=== PATIENT | female | born 1955 | race Caucasian/White ===

== ENCOUNTER 2023-11-10 16:01 | Outpatient (AMB) | payer OTHER, SELFPAY ==
--- NOTE | 2023-11-10 16:08 | A.OFFPC_ITS ---
Vital Signs 11/10/23 16:10 Height 5 ft 3 in Weight 133 lb 6 oz BMI 23.6 BP 132/70 Blood Pressure Location Lt brachial Position Sitting Pulse 76 Pulse Source Pulse Oximeter Pulse Oximetry (%) 98 Oxygen Delivery Method Room Air Intake Visit Reasons: NPV/discuss medication Intake Note: Patient is a new patient here to establish care for Hypothyroid, Cholesterol, possible high glucose . Transferring care from Dr Yeison Puentes ([facility], [facility]). Medical records have not been requested and have not received. Material Reprocessing Associate Required: No Financial Health Counselor: Not Required per policy Accompanied by: Self / Same As Patient Allergies No Known Allergies Allergy (Verified 11/10/23 16:55) Medication List - Last Reconciled 11/10/23 by Antoni Torres MD levothyroxine 88 mcg PO DAILY tpouecqa-eti-uvucl-vit K-lycop 400-20-300 mcg (One-A-Day Men's Multivitamin) tabs PO rosuvastatin 20 mg PO DAILY Tobacco use date assessed: 11/10/23 Fall risk assessment: No Falls in past year Last assessed Fall Risk: 11/10/23 Dental Screening Dental Screen Date: 11/10/23 Did you have a dental visit in the last 12 months?: Yes Did you have a dental problem in the last 6 months where you did not have access to dental care?: No Was dental information given to patient?: Patient has dentist HPI NPV/discuss medication HPI Details Patient comes in today to establish care - is a new patient to the practice Her previous PCP was Dr Yeison Puentes at [facility] in [place], [place] but states that he recently dropped Medicare and she can unfortunately no longer continue to see him as a patient Patient states that she currently feels well and mainly needs her Rx refilled as she will be running out of her prescriptions in about a month or so She denies any headaches or dizziness Denies any fever or any recent cough/cold symptoms; states that her throat feels slightly sore, especially on the left side Relates that she almost always ends up with a strep throat around this time of the year and her previous PCP would always have to treat her with some Abx for this; would like to have a strep test done in the office and get this treated if she has it again Is wondering if there are any other tests that can be ordered to check her for chronic strep infection Denies any chest pains, no SOB No nausea/vomiting, no abdominal pain No change in bowel habits noted She is also requesting for an order for chest x-rays, which she states her previous PCP normally orders for her annually Would also like to request for a thyroid US (has not had one done in 2 to 3 years now) and also an order for her yearly mammogram and updated BMD [facility] Medical History (Updated 11/12/23 @ 16:09 by Antoni Torres MD) Acquired hypothyroidism Pure hypercholesterolemia Surgical History (Updated 11/10/23 @ 17:10 by Antoni Torres MD) Hx of hysterectomy History of cholecystectomy Social History Housing: House Alcohol intake: never Patient Tobacco Use Status: Never used Tobacco e-Cigarette/Vaping Use: Never Used Second Hand Smoke Exposure: No service: No Current occupational status: retired Cognitive needs: No Hearing needs: No Vision needs: Yes (reading glasses) Questionnaire PHQ-9 Over the last 2 weeks, how often have you been bothered by any of the following problems? 1. Little interest or pleasure in doing things: not at all 2. Feeling down, depressed, or hopeless: not at all 3. Trouble falling or staying asleep, or sleeping too much: not at all 4. Feeling tired or having little energy: not at all 5. Poor appetite or overeating: not at all 6. Feeling bad about yourself - or that you are a failure or have let yourself or your family down: not at all 7. Trouble concentrating on things, such as reading the newspaper or watching television: not at all 8. Moving or speaking so slowly that other people could have noticed. Or the opposite - being so fidgety or restless that you have been moving around a lot more than usual: not at all 9. Thoughts that you would be better off or of hurting yourself in some way: not at all Total score: 0 Depression Screening Interpretation: Negative Depression Screening Done: Yes 21648 - PHQ-9 Billing: Yes Source: Developed by Drs. Justin Mitchell, Monalisa Choi, Bryce Flores and colleagues, with an educational anais from [employer]. Thrive Questionnaire Date Thrive assessed: 11/10/23 I am a: Patient What is your living situation today?: I have a steady place to live Within the past 12 months, did the food you bought not last and you didn't have the money to get more?: Never true Within the past 12 months, did you worry whether your food would run out before you got money to buy more?: Never true Do you have trouble paying for medicines?: No Do you have trouble getting transportation to medical appointments?: No Do you have trouble paying your heating and electricity bill?: No Do you have trouble taking care of your child, family member or friend?: No Do you have trouble with day-to-day activities such as bathing, preparing meals, shopping, managing finances, etc.?: No Are you currently unemployed and looking for a job?: No Are you interested in more education?: No Currently or been in a relationship where the following occur: no concerns reported THRIVE Score: 0 AUDIT C Alcohol Use Questionnaire (AUDIT-C) 1. How often do you have a drink containing alcohol?: Never Total Score: 0 Score Reviewed/Action Taken: Yes CONNIE-7 AMB Questionnaire CONNIE-7 Date CONNIE - 7 assessed: 11/10/23 Feeling nervous, anxious, or on edge: 0 = Not at all Not being able to stop or control worryin = Not at all Worrying too much about different things: 0 = Not at all Trouble relaxin = Not at all Being so restless that it is hard to sit still: 0 = Not at all Becoming easily annoyed or irritable: 0 = Not at all Feeling afraid as if something awful might happen: 0 = Not at all Total CONNIE-7 score (0-4 normal; 5-9 mild; 10-14 moderate; 15-21 severe): 0 Source: Developed by Drs. Justin Mitchell, Monalisa Choi, Bryce Flores and colleagues, with an educational anais from [employer]. Review of Systems Const Denies chills, Denies fatigue, Denies fever(s) and Denies headache(s) ENT Denies dysphagia, Denies dizziness, Denies otalgia, Denies headache(s), Denies neck pain, Denies odynophagia and Reports sore throat (mild) Card Denies chest pain, Denies palpitations and Denies dyspnea Resp Denies cough and Denies dyspnea GI Denies abdominal pain, Denies constipation, Denies dysphagia, Denies heartburn, Denies diarrhea, Denies nausea, Denies odynophagia and Denies vomiting Denies difficulty voiding, Denies nocturia, Denies dysuria and Denies urinary urgency Musc Denies back pain and Denies neck pain Skin/Breast Denies rash Neuro Denies dizziness and Denies headache(s) Psych Denies anxiety and Denies depression Endo Denies fatigue and Denies palpitations Physical exam (Primary Care) Vital Signs: Last Vital Signs Pulse 76 11/10/23 16:10 BP 132/70 11/10/23 16:10 Pulse Ox 98 11/10/23 16:10 Oxygen Delivery Method Room Air 11/10/23 16:10 BMI result Body Mass Index 23.6 Tobacco/Smoking Status: Tobacco use Status Tobacco use date assessed 11/10/23 11/10/23 16:13 Patient Tobacco Use Status Never used Tobacco 11/10/23 16:13 e-Cigarette/Vaping Use Never Used 11/10/23 16:13 PHQ-9: PHQ-9 Score PHQ-9: Total score 0 11/12/23 16:06 Depression Screening Interpretation: Negative Thrive Assessment: Date of Thrive Assessment Date Thrive assessed 11/10/23 11/10/23 16:13 Currently or been in a relationship where the following occur: no concerns reported Const General: no acute distress and alert Orientation/consciousness: patient oriented x3 HENMT Ears: TM's normal bilaterally and EAC's normal Throat: Yes posterior oropharynx normal and Yes tonsils normal (no TP congestion) Neck Neck: Yes no lymphadenopathy and Yes supple Thyroid: Thyroid normal Resp Auscultation: clear to auscultation bilaterally, no rales and no wheezes Cardio Rate: regular rate Rhythm: regular rhythm Heart sounds: no murmurs GI Palpation (GI): Soft to palpation and nontender Auscultation: normal bowel sounds General: Yes no CVA tenderness Back/Spine/Pelvis Back: no CVA tenderness Thoracic/Lumbar Spine: No lumbar spinal tenderness Skin Rashes: no rashes Neuro General: patient oriented x3 Cognition (Neuro): normal cognition Gait exam (Neuro): Normal gait present Extrem General: Yes no clubbing, cyanosis or edema Results AMB Rapid Strep AMB Rapid Strep Negative Last Edit by Amira Sánchez on 11/10/23 17:09 Results Reviewed Results Reviewed: Laboratory Last Values Strep Scn Rapid Clinic Negative 11/10/23 17:07 Assessment and Plan Assessment & Plan (1) Pure hypercholesterolemia: Code(s): E78.00 - Pure hypercholesterolemia, unspecified Plan: Reinforced low cholesterol diet Continue Rosuvastatin 20 mg QD - Rx refilled Will send patient to get her labs and fasting lipids done URI for follow up (2) Acquired hypothyroidism: Code(s): E03.9 - Hypothyroidism, unspecified Plan: Continue Levothyroxine 88 mcg QD Will send patient for repeat TFTs URI Per request, will also send her for a repeat thyroid US for follow up (reportedly had thyroid US last done a few years ago) (3) Sore throat: Code(s): J02.9 - Acute pharyngitis, unspecified Plan: She is reassured that her strep test done in the office today came out negative Advised that there is no point in doing any other confirmatory tests at this time and she does not have symptoms to indicate that she has a chronic strep infection Plan To return in 6 months for her annual physical examination Per request, will also order her annual mammogram and update her BMD screening, both of which will be due sometime in January 2024 Orders: Orders Comprehensive [place]. Panel Fast 11/10/23 E78.00 - Pure hypercholesterolemia, unspecified Lipid Panel 11/10/23 E78.00 - Pure hypercholesterolemia, unspecified UA CC w/rflx Micro + Cult 11/10/23 R30.0 - Dysuria XR DEXA axial skeleton 01/17/24 Z78.0 - Asymptomatic menopausal state AMB Rapid Strep Screen 11/10/23 Z13.9 - Encounter for screening, unspecified Complete Blood Count Auto Diff 11/10/23 D64.9 - Anemia, unspecified Thyroid Stimulating Hormone 11/10/23 E03.9 - Hypothyroidism, unspecified Free T4 (Free Thyroxine) 11/10/23 E03.9 - Hypothyroidism, unspecified Vitamin D 25-OH Total 11/10/23 E55.9 - Vitamin D deficiency, unspecified US thyroid 11/10/23 E04.1 - Nontoxic single thyroid nodule XR chest 2V 11/10/23 J98.8 - Other specified respiratory disorders MM tomosynthesis screening BI 01/17/24 Z12.31 - Encounter for screening mammogram for malignant neoplasm of breast Medications: New levothyroxine 88 mcg PO DAILY 90 days 90 tabs 3RF rosuvastatin 20 mg PO DAILY 90 days 90 tabs 3RF Coding Level of Care Code New Pt Level 4 (15062) Diagnoses Pure hypercholesterolemia E78.00 Acquired hypothyroidism E03.9 Sore throat J02.9
[2023-11-10 16:10] VITALS: BP 132/70; PULSE 76; O2SAT 98; BMI 23.6
== END 2023-11-10 17:08 | disposition home or self-care (01) ==
PROVIDERS: PCP Internal Medicine; Visit Provider Internal Medicine
DX: E78.00 Pure hypercholesterolemia, unspecified (principal); E03.9 Hypothyroidism, unspecified; J02.9 Acute pharyngitis, unspecified
CPT/HCPCS: 87880; 99204

== ENCOUNTER 2023-11-17 14:52 | Outpatient (REF) | payer MEDICARE, SELFPAY ==
--- NOTE | ~2023-11-17 | US_ITS ---
EXAMINATION: US THYROID CLINICAL INFORMATION: Nontoxic single thyroid nodule. COMPARISON: None available. TECHNIQUE: Linear transducer grayscale and color Doppler examination with attention to the region of the thyroid. FINDINGS: SIZE: Measurements of the thyroid lobes and nodules are given in sagittal, anteroposterior and transverse dimensions respectively. Right Thyroid Lobe: 4.5 x 2.0 x 0.9 cm, volume 4.2 mL. Parenchyma: The gland echotexture is homogeneous. Thyroid vascularity is normal. Left Thyroid Lobe: 3.9 x 1.2 x 1.2 cm, volume 2.9 mL. Parenchyma: The gland echotexture is homogeneous. Thyroid vascularity is normal. Isthmus: 0.2 cm in maximum AP dimension. No suspicious thyroid nodules are identified. A few tiny subcentimeter nodules are present, particularly in the right upper thyroid lobe. NODES: No lymphadenopathy is seen in the tissue surrounding the thyroid gland. US/US thyroid IMPRESSION: No suspicious thyroid nodules are identified. A few tiny subcentimeter nodules are present, particularly in the right upper thyroid lobe. ACR TI-RADS RECOMMENDATION REFERENCE: Ultrasound-guided fine-needle aspiration, followup ultrasound, no further follow up. * TR1 (0 point) and TR2 (2 points): No FNA or follow up. * TR3 (3 points): FNA if more than or equal to 2.5 cm in maximum dimension, followup ultrasound in 1, 3 and 5 years if 1.5 to 2.4 cm in maximum dimension. * TR4 (4-6 points): FNA if more than or equal to 1.5 cm in maximum dimension, followup ultrasound in 1, 2, 3 and 5 years if 1 to 1.4 cm in maximum dimension. * TR5 (more than or equal to 7 points): FNA if more than or equal to 1 cm in maximum dimension, followup ultrasound every year for 5 years if 0.5 to 0.9 cm in maximum dimension. * TR3, TR4 or TR5 nodules that are below the size threshold for followup receive no follow up.
--- NOTE | ~2023-11-17 | XR_ITS ---
EXAMINATION: XR CHEST CLINICAL INFORMATION: Respiratory disorder COMPARISON: None available. TECHNIQUE: 2 views of the chest were obtained. FINDINGS: The cardiac and mediastinal contours are normal. The lungs are well inflated questionable for COPD. The lungs are clear. No pleural effusion or pneumothorax. Thoracolumbar scoliosis and degenerative changes of the spine. XR/XR chest 2V IMPRESSION: No evidence for acute disease in the chest. Well-inflated lungs.
== END 2023-11-17 14:53 | disposition home or self-care (01) ==
LOC: HO.HMGCX 14:52
PROVIDERS: PCP Internal Medicine; Visit Provider Internal Medicine
DX: E04.1 Nontoxic single thyroid nodule (principal); J98.8 Other specified respiratory disorders
CPT/HCPCS: 71046; 76536

== ENCOUNTER 2023-12-05 07:16 | Outpatient (REF) | payer MEDICARE, SELFPAY ==
[2023-12-05 12:46] LABS: MANUAL DIFF FLAG NO
[2023-12-05 12:49] LABS: Basophils Absolute Auto 0.1 X10*3/uL (0.0-0.2); Basophils Percent Auto 1.4 % (0-2); Eosinophils Absolute Auto 0.2 X10*3/uL (0.0-0.4); Eosinophils Percent Auto 3.5 % (0-4); Hematocrit 40.5 % (37.0-47.0); Hemoglobin 13.4 g/dl (12.0-16.0); Imm Gran Abs Auto 0.01 X10*3/uL (0.00-0.03); Imm Gran Pct Auto 0.2 % (0.0-0.4); Lymphocytes Absolute Auto 1.6 X10*3/uL (1.2-4.9); Lymphocytes Percent Auto 35.7 % (20-40); Mean Corpuscular HGB Conc 33.1 g/dl (31.0-35.0); Mean Corpuscular Hemoglobin 30.7 pg (27.0-33.0); Mean Corpuscular Volume 92.7 fL (80.0-98.0); Mean Platelet Volume 10.4 fL (9.4-12.3); Monocytes Absolute Auto 0.4 X10*3/uL (0.1-1.2); Monocytes Percent Auto 8.3 % (2-11); Neutrophils Absolute Auto 2.2 x10*3/uL (2.0-8.3); Neutrophils Percent Auto 50.9 % (45-73); Platelet Count 228 X10*3/uL (160-400); Red Blood Count 4.37 X10*6/uL (4.20-5.50); Red Cell Distribution Width 13.2 % (11.0-16.0); White Blood Count 4.3 X10*3/uL (4.8-10.8)
[2023-12-05 13:15] LABS: Alanine Aminotransferase 28 U/L (0-31); Albumin Level 4.2 g/dL (3.5-5.0); Alkaline Phosphatase 64 U/L (39-117); Anion Gap 11 (12-20); Aspartate Amino Transferase 22 U/L (5-31); Bilirubin Total 0.5 mg/dL (0.0-1.0); Blood Urea Nitrogen 12 mg/dL (9-16); Calcium 9.5 mg/dL (8.4-10.2); Carbon Dioxide 28 mmol/L (22-29); Chloride 105 mmol/L (96-108); Cholesterol 171 mg/dL (<200); Estimated Glomerular Filt Rate > 60; Glucose Fasting 91 mg/dL (60-99); HDL Cholesterol 63 mg/dL (>40); LDL Cholesterol Calculated 91 mg/dL (<100); Potassium 3.5 mmol/L (3.3-5.1); Sodium 140 mmol/L (135-145); Total Protein 6.9 g/dL (6.5-8.0); Triglycerides 86 mg/dL (<150)
[2023-12-05 13:34] LABS: Free T4 (Free Thyroxine) 1.15 ng/dL (0.71-1.85); Thyroid Stimulating Hormone 1.82 uIU/mL (0.32-4.0); Vitamin D 25-OH Total 49.2 ng/mL (>30)
[2023-12-05 14:40] LABS: Appearance Urine Clear; Color Urine Yellow; Glucose Urine UA Negative (Negative); Leukocyte Esterase Urine Large (3+) (Negative); Nitrite Urine Negative (Negative); PH 6.5 (5.0-9.0); Specific Gravity - Urine <= 1.005 (1.005-1.025); UMIC TRIGGER UACC YES; Urine Blood Trace (Negative); Urine Ketones Negative (Negative); Urine Protein Negative (Neg-Trace)
[2023-12-05 14:45] LABS: Bacteria Urine None Seen (None Seen); Hyaline Casts Urine 0-2 /LPF (0-2); RBC Urine 0-2 /HPF (0-2); UACC Culture Trigger YES
== END 2023-12-05 07:17 | disposition home or self-care (01) ==
LOC: HO.HMGCLDS 07:16
PROVIDERS: PCP Internal Medicine; Visit Provider Internal Medicine
DX: E03.9 Hypothyroidism, unspecified (principal); D64.9 Anemia, unspecified; E78.00 Pure hypercholesterolemia, unspecified; E55.9 Vitamin D deficiency, unspecified
CPT/HCPCS: 36415; 80053; 80061; 81001; 81003; 82306; 84439; 84443; 85025; 87086; 87147

== ENCOUNTER 2024-01-23 13:50 | Outpatient (REF) | payer MEDICARE, SELFPAY ==
--- NOTE | ~2024-01-23 | MM_ITS ---
EXAMINATION: BONE DENSITOMETRY CLINICAL INDICATION: Menopause. COMPARISON: This is the patient's baseline examination. TECHNIQUE: Using a Nov[employer]Edge DXA System (software version: 13.1) manufactured by [employer], dual-energy x-ray absorptiometry was performed of the lumbar spine and left hip. The images are of good technical quality. Summary results are attached. FINDINGS: LEFT FEMUR, NECK: BMD 0.792 g/cm2, Z-score -0.1, T-score -1.8, osteopenia. LEFT FEMUR, TOTAL: BMD 0.720 g/cm2, Z-score -0.8, T-score -2.3, osteopenia. AP SPINE L1-L4: BMD 0.868 g/cm2, Z-score -0.8, T-score -2.6, osteoporosis. IDENTIFIED RISK FACTORS: Menopause, hysterectomy. HISTORY OF FRACTURE: None listed. MEDICATIONS: Calcium, vitamin D. MM/XR DEXA axial skeleton IMPRESSION: 1. DIAGNOSIS: Osteoporosis based on the lowest T-score value of -2.6 in the lumbar spine applying World Health Organization criteria. 2. 10-YEAR FRACTURE RISK PREDICTION, FRAX: According to the guidelines, FRAX calculation should only be performed on patients in the osteopenia bone density category. Therefore, FRAX was not performed on this patient. 3. Treatment Recommendations: NOF guidelines recommend consideration for treatment in postmenopausal women and men age 50 and older presenting with the following: -A hip or vertebral (clinical or morphometric) fracture. -T-score less than or equal to -2.5 at the femoral neck or spine after appropriate evaluation to exclude secondary causes. -Low bone mass at the hip or spine and a 10-year fracture probability by FRAX of greater than or equal to 3% for hip fracture or greater than or equal to 20% for major osteoporotic fracture based on the [place] adapted WHO algorithm. 4. Other Recommendations: All treatment decisions require clinical judgment and consideration of individual patient factors, including patient preferences, comorbidities, previous drug use, risk factors not captured in the FRAX model (e.g. frailty, falls, vitamin D deficiency, increased bone turnover, interval significant decline in bone density) and possible under or overestimation of fracture risk by FRAX. Additional medical evaluation for secondary cause of low bone mineral density may be appropriate. FUTURE SCAN RECOMMENDATION: People with diagnosed cases of osteoporosis or at high risk for fracture should have regular bone mineral density tests. For patients eligible for Medicare, routine testing is allowed once every 2 years. The testing frequency can be increased to one year for patients who have rapidly progressing disease, those who are receiving or discontinuing medical therapy to restore bone mass, or have additional risk factors.
== END 2024-01-23 13:51 | disposition home or self-care (01) ==
LOC: HO.MAMMO 13:50
PROVIDERS: PCP Internal Medicine; Visit Provider Internal Medicine
DX: Z12.31 Encounter for screening mammogram for malignant neoplasm of breast (principal); Z13.820 Encounter for screening for osteoporosis; Z78.0 Asymptomatic menopausal state
CPT/HCPCS: 77063; 77067; 77080

== ENCOUNTER → 2024-01-23 14:30 | Outpatient (BNV) | payer MEDICARE, SELFPAY | PROVIDERS: PCP Internal Medicine; Visit Provider Radiology Diagnostic Radiology | DX: Z12.31 Encounter for screening mammogram for malignant neoplasm of breast (principal) | CPT/HCPCS: 77063; 77067 ==

== ENCOUNTER 2024-03-29 14:09 | Outpatient (REF) | payer MEDICARE, SELFPAY ==
[2024-03-29 16:07] LABS: Appearance Urine Clear; Color Urine Yellow; Glucose Urine UA Negative (Negative); Leukocyte Esterase Urine Negative (Negative); Nitrite Urine Negative (Negative); Specific Gravity - Urine <= 1.005 (1.005-1.025); Urine Blood Negative (Negative); Urine Ketones Negative (Negative); Urine Protein Negative (Neg-Trace)
== END 2024-03-29 14:10 | disposition home or self-care (01) ==
LOC: HO.HMGCLDS 14:09
PROVIDERS: PCP Internal Medicine; Visit Provider Internal Medicine
DX: R30.0 Dysuria (principal)
CPT/HCPCS: 81003

== ENCOUNTER 2024-04-05 13:38 | Outpatient (AMB) | payer MEDICARE, SELFPAY ==
--- NOTE | 2024-04-05 14:06 | AM.OFFWIN_ITS ---
Intake Vital Signs 04/05/24 14:07 Height 5 ft 3 in Weight 136 lb BMI 24.1 BP 124/78 Blood Pressure Location Lt brachial Position Sitting Pulse 81 Pulse Source Pulse Oximeter Temp 98.8 F Temp Source Oral Pulse Oximetry (%) 97 Oxygen Delivery Method Room Air Intake Visit Reasons: EP Itchy, burning front/back mainly anus Intake Note: pt c/o vaginal and rectal itching. Ongoing for 2 weeks. Declined UA Patient Tobacco Use Status: Never used Tobacco Allergies No Known Allergies Allergy (Verified 04/05/24 14:06) Do you need a note to return to daycare/school/sports/work: No HPI HPI Comments History of Present Illness Details 68 y/o female patient who presents to [facility] walk [facility] clinic with c/o Rectal pain and itching. She also c/o vaginal itching and burning. Reports that symptoms started 2 weeks ago. She has used OTC remedies such as Monistat cream and Prep-H with relief. She has UA done back in March 29 with negative cystitis. Does report chronic diarrhea since 1991 - per Pt she had her Gallbladder removed and she is not suppose to eat oily greasy foods. [facility] Medical History (Updated 11/12/23 @ 16:09 by Antoni Torres MD) Acquired hypothyroidism Pure hypercholesterolemia Surgical History (Updated 11/10/23 @ 17:10 by Antoni Torres MD) Hx of hysterectomy History of cholecystectomy Social History Housing: House Alcohol intake: never Patient Tobacco Use Status: Never used Tobacco e-Cigarette/Vaping Use: Never Used Second Hand Smoke Exposure: No service: No Current occupational status: retired Cognitive needs: No Hearing needs: No Vision needs: Yes (reading glasses) Review of Systems Const All systems reviewed & are unremarkable except as noted in HPI and below Physical Exam Vital Signs: Last Vital Signs Temp 98.8 F 04/05/24 14:07 Pulse 81 04/05/24 14:07 BP 124/78 04/05/24 14:07 Pulse Ox 97 04/05/24 14:07 Oxygen Delivery Method Room Air 04/05/24 14:07 BMI result Body Mass Index 24.1 Const General: comfortable and no acute distress Orientation/consciousness: patient oriented x3 GI Palpation (GI): Soft to palpation, not firm, Tenderness to palpation present (GI) suprapubicly, no guarding, not rigid and No hepatosplenomegaly present Auscultation: normal bowel sounds Rectal Exam - Female: normal sphincter tone, External hemorrhoid(s) present, Anal fissure(s) present, hemorrhoids and tenderness General: Yes no CVA tenderness External Female Exam: erythema, externally tender, No urethral discharge and No tender Speculum Exam - Vagina: abnormal vaginal discharge white, vagina atrophic, jayne thematous, no lesions and No vaginal bleeding Speculum Exam - Cervix: Cervix absent Bimanual exam- vagina & uterus: uterus absent and other (Bladder prolapse) OB/external & speculum: No vaginal bleeding Back/Spine/Pelvis Back: no CVA tenderness Skin General skin exam: no rashes or lesions noted Neuro General: patient oriented x3, gait normal and moves all extremities Psych Speech and movement: Normal speech and movement present Assessment & Plan Assessment & Plan (1) Rectal itching: Code(s): L29.0 - Pruritus ani Plan: Ordered rectal cream to be used at bedtime Keep Area dry and clean Advised Pt to f/u with PCP or GI for Diarrhea management (2) Vaginitis and vulvovaginitis: Code(s): N76.0 - Acute vaginitis Plan: Take medicine as directed Orders: Orders Bacterial Vaginosis Panel Today N76.0 - Acute vaginitis Medications: New fluconazole 150 mg PO Q3D 10 tabs 0RF N76.0 - Acute vaginitis clindamycin phosphate 2% FOR 3 DAYS ONLY 1 appful vaginal BEDTIME 40 grams 0RF N76.0 - Acute vaginitis capsaicin 0.1% (Capsaicin HP) Apply a thin layer around rectum. Do not wash area for at least 30 min after application. 1 appl topical BEDTIME 42.5 grams 1RF L29.0 - Pruritus ani Coding Level of Care Code Est Pt Level 3 (71793) Diagnoses Rectal itching L29.0 Vaginitis and vulvovaginitis N76.0 Time Spent (min) 15
[2024-04-05 14:07] VITALS: BP 124/78; PULSE 81; TEMP 37.1; O2SAT 97; BMI 24.1
== END 2024-04-05 15:38 | disposition home or self-care (01) ==
PROVIDERS: PCP Internal Medicine; Visit Provider Nurse Practitioner Family
DX: L29.0 Pruritus ani (principal); N76.0 Acute vaginitis
CPT/HCPCS: 99213

== ENCOUNTER 2024-04-05 15:28 | Outpatient (REF) | payer MEDICARE, SELFPAY ==
[2024-04-06 14:32] LABS: Bacterial Vaginosis PCR NEGATIVE (Negative); Candida Group PCR NOT DETECTED (Not Detect); Candida glab krusei PCR NOT DETECTED (Not Detect); Trichomonas vaginalis PCR NOT DETECTED (Not Detect)
== END 2024-04-05 15:29 | disposition home or self-care (01) ==
LOC: HO.LAB 15:28
PROVIDERS: Visit Provider Nurse Practitioner Family
DX: N76.0 Acute vaginitis (principal)
CPT/HCPCS: 0352U

== ENCOUNTER 2024-04-09 14:44 | Outpatient (AMB) | payer MEDICARE, SELFPAY ==
--- NOTE | 2024-04-09 14:53 | AM.OFFWIN_ITS ---
Intake Vital Signs 04/09/24 14:54 Height 5 ft 3 in Weight 136 lb BMI 24.1 BP 132/84 Blood Pressure Location Rt brachial Position Sitting Pulse 77 Pulse Source Pulse Oximeter Temp 98.8 F Temp Source Oral Pulse Oximetry (%) 98 Oxygen Delivery Method Room Air Intake Visit Reasons: EP Groin and Butt concerns/not better Intake Note: pt c/o groin and rectal itching and burning. Ongoing. Worsening Patient Tobacco Use Status: Never used Tobacco Allergies No Known Allergies Allergy (Verified 04/09/24 14:54) Do you need a note to return to daycare/school/sports/work: No HPI HPI Comments History of Present Illness Details 68 y/o female patient who presents to [facility] walk in clinic again with c/o rectal and vaginal itching and burning. Pt was seen by me Last Week for these concerns. Pelvic and rectal examination revealed internal hemorrhoids and BV/Yeast vaginal infections. Pt was prescribed Fluconazole and Clindamycin. I sent Anusol Supp which was denied coverage by insurance. I sent Capsaicin cream which was also denied by insurance. Pt has been using Prep-H with no relief. BV Vaginal panel was negative. Pt reports no symptom improvement despite the treatment. Pt presents urine culture report where showed Strep Agalactiae positive in urine. She was prescribed Cephalexin x 7 days, this was back in December. Today Pt believes she still has the same Bacteria inside her vagina and Rectum, demanding prescription for Abx (demanding Cephalexin). Pt did inform me last week that she has chronic diarrhea for years now and believes this is due to cholecystectomy surgery. Reports that Imodium does not work for her. PFSH Medical History (Updated 11/12/23 @ 16:09 by Antoni Torres MD) Acquired hypothyroidism Pure hypercholesterolemia Surgical History (Updated 11/10/23 @ 17:10 by Antoni Torres MD) Hx of hysterectomy History of cholecystectomy Social History Housing: House Alcohol intake: never Patient Tobacco Use Status: Never used Tobacco e-Cigarette/Vaping Use: Never Used Second Hand Smoke Exposure: No service: No Current occupational status: retired Cognitive needs: No Hearing needs: No Vision needs: Yes (reading glasses) Review of Systems Const All systems reviewed & are unremarkable except as noted in HPI and below Physical Exam Vital Signs: Last Vital Signs Temp 98.8 F 04/09/24 14:54 Pulse 77 04/09/24 14:54 BP 132/84 04/09/24 14:54 Pulse Ox 98 04/09/24 14:54 Oxygen Delivery Method Room Air 04/09/24 14:54 BMI result Body Mass Index 24.1 Const General: no acute distress Orientation/consciousness: patient oriented x3 Neuro General: patient oriented x3, gait normal and moves all extremities Psych Speech and movement: Normal speech and movement present Affect: Irritable affect present Assessment & Plan Assessment & Plan (1) Rectal itching: Code(s): L29.0 - Pruritus ani Plan: Unable to send Anusol, insurance not covering. Advised Prep-H, prob the foam Pt upset with me because I declined to prescribe Abx for her. Pt demanding rectal culture to r/o Bacteria (2) Vaginitis and vulvovaginitis: Code(s): N76.0 - Acute vaginitis Plan: Advised her to continue taking Fluconazole as directed. Plan - Advised Pt to f/u with PCP for GI referral. - Unable to give me urine sample. Coding Level of Care Code Est Pt Level 3 (94436) Diagnoses Rectal itching L29.0 Vaginitis and vulvovaginitis N76.0 Time Spent (min) 15
[2024-04-09 14:54] VITALS: BP 132/84; PULSE 77; TEMP 37.1; O2SAT 98; BMI 24.1
== END 2024-04-09 15:23 | disposition home or self-care (01) ==
PROVIDERS: PCP Internal Medicine; Visit Provider Nurse Practitioner Family
DX: L29.0 Pruritus ani (principal); N76.0 Acute vaginitis
CPT/HCPCS: 99213

== ENCOUNTER 2024-05-03 16:30 | Outpatient (AMB) | payer OTHER, SELFPAY ==
[2024-05-03 16:31] VITALS: BP 130/68; PULSE 79; O2SAT 96; BMI 23.6
--- NOTE | 2024-05-03 16:31 | MHC.PC.OV ---
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 Accompanied by: Self / Same As Patient Allergies No Known Allergies Allergy (Verified 05/03/24 16:56) Medication List - Last Reconciled 05/03/24 by Antoni Torres MD amoxicillin 500 mg PO Q8H 7 days levothyroxine 88 mcg PO DAILY 90 days multivit with min-folic acid 0.4 mg (One-A-Day Women's 50 Plus) 1 tab PO DAILY rosuvastatin 20 mg PO DAILY 90 days Tobacco use date assessed: 05/03/24 Fall risk assessment: No Falls in past year Last assessed Fall Risk: 05/03/24 Dental Screening Dental Screen Date: 05/03/24 Did you have a dental visit in the last 12 months?: Yes Did you have a dental problem in the last 6 months where you did not have access to dental care?: No Was dental information given to patient?: Patient has dentist HPI PHYSICAL HPI Details Patient comes in today for her annual physical examination States that she has been experiencing recurrent vaginal and sometimes rectal irritation and itching for the past month or so She went to the walk-in clinic a couple of times over the past month for this issue and was requesting for some Abx Tx but her request was declined She had a bacterial vaginosis panel done which came out negative States that she was treated with some vaginal cream instead (Clindamycin and Capsaicin) which did not help She recalls experiencing similar symptoms back in December 2023 wherein her urine test grew out group B strep in her culture although the quantity then was only between [id number] to [id number] cfu She was convinced at the time that her symptoms were due to UTI and per her request, she was tried on oral Cephalexin, which she states helped clear up her symptoms and she has been symptom-free since until about a month ago Is currently asking for some Abx Rx again as she is convinced that she has some UTI States that she feels okay otherwise She denies any fever, headaches or dizziness Denies any chest pains, no SOB No nausea/vomiting, no abdominal pain No change in bowel habits noted She denies any dysuria or urinary frequency States that she had a hysterectomy done years ago (due to uterine and cervical prolapse) and recalls being advised by her spray drier operator a few years ago that since she no longer has a cervix, she does not need to continue with her yearly pap smears States that she last had her screening colonoscopy done about 10 years ago at [facility] She had her annual mammogram and BMD done a few months ago - to discuss her results Relates that she was on some weekly oral medication (presumably Alendronate) for about 4 to 5 years in the past for her bone (osteoporosis) but this was stopped about 10 years ago now Also had her follow up labs done back in December 2023 and would like to know how she did on her labs back then [facility] Medical History Osteoporosis Acquired hypothyroidism Pure hypercholesterolemia Surgical History Hx of hysterectomy History of cholecystectomy Social History Housing: House Alcohol intake: never Patient Tobacco Use Status: Never used Tobacco e-Cigarette/Vaping Use: Never Used Second Hand Smoke Exposure: No service: No Current occupational status: retired Gender identity: Female Cognitive needs: No Hearing needs: No Vision needs: Yes (reading glasses) Questionnaire PHQ-9 Over the last 2 weeks, how often have you been bothered by any of the following problems? 1. Little interest or pleasure in doing things: not at all 2. Feeling down, depressed, or hopeless: not at all 3. Trouble falling or staying asleep, or sleeping too much: not at all 4. Feeling tired or having little energy: not at all 5. Poor appetite or overeating: not at all 6. Feeling bad about yourself - or that you are a failure or have let yourself or your family down: not at all 7. Trouble concentrating on things, such as reading the newspaper or watching television: not at all 8. Moving or speaking so slowly that other people could have noticed. Or the opposite - being so fidgety or restless that you have been moving around a lot more than usual: not at all 9. Thoughts that you would be better off or of hurting yourself in some way: not at all Total score: 0 Depression Screening Interpretation: Negative Depression Screening Done: Yes 67699 - PHQ-9 Billing: Yes Source: Developed by Drs. Justin Mitchell, Monalisa Choi, Bryce Flores and colleagues, with an educational anais from [employer]. Thrive Questionnaire Date Thrive assessed: 05/03/24 I am a: Patient What is your living situation today?: I have a steady place to live Within the past 12 months, did the food you bought not last and you didn't have the money to get more?: Never true Within the past 12 months, did you worry whether your food would run out before you got money to buy more?: Never true Do you have trouble paying for medicines?: No Do you have trouble getting transportation to medical appointments?: No Do you have trouble paying your heating and electricity bill?: No Do you have trouble taking care of your child, family member or friend?: No Do you have trouble with day-to-day activities such as bathing, preparing meals, shopping, managing finances, etc.?: No Are you currently unemployed and looking for a job?: No Are you interested in more education?: No Please select the resources that you would like help with: None Currently or been in a relationship where the following occur: No concerns reported THRIVE Score: 0 AUDIT C Alcohol Use Questionnaire (AUDIT-C) 1. How often do you have a drink containing alcohol?: Never 3. How often do you have six or more drinks on one occasion?: Never Total Score: 0 Score Reviewed/Action Taken: Yes CONNIE-7 AMB Questionnaire CONNIE-7 Date CONNIE - 7 assessed: 05/03/24 Feeling nervous, anxious, or on edge: 0 = Not at all Not being able to stop or control worryin = Not at all Worrying too much about different things: 0 = Not at all Trouble relaxin = Not at all Being so restless that it is hard to sit still: 0 = Not at all Becoming easily annoyed or irritable: 0 = Not at all Feeling afraid as if something awful might happen: 0 = Not at all Total CONNIE-7 score (0-4 normal; 5-9 mild; 10-14 moderate; 15-21 severe): 0 Source: Developed by Drs. Justin Mitchell, Monalisa Choi, Bryce Flores and colleagues, with an educational anais from [employer]. Review of Systems Const Denies chills, Denies fatigue, Denies fever(s), Denies headache(s) and Denies malaise Eyes Denies blurry vision, Denies change in vision, Denies irritation and Denies itchy eyes ENT Denies dysphagia, Denies dizziness, Denies otalgia, Denies headache(s), Denies nasal congestion, Denies neck pain, Denies odynophagia, Denies sinus pain and Denies sore throat Card Denies chest pain, Denies rapid heart rate, Denies irregular heart rhythm, Denies palpitations and Denies dyspnea Resp Denies chest congestion, Denies cough, Denies dyspnea and Denies wheezing GI Denies abdominal pain, Denies bloating, Denies constipation, Denies dysphagia, Denies heartburn, Denies diarrhea, Denies nausea, Denies odynophagia and Denies vomiting Denies hematuria, Denies urinary frequency, Denies dysuria, Denies urinary incontinence, Denies urinary urgency and Reports vaginal pruritus Musc Denies back pain, Denies arthralgias, Denies joint swelling, Denies muscle weakness and Denies neck pain Skin/Breast Denies breast pain, Denies breast mass, Denies change in pigmentation, Denies lesions, Denies rash and Denies unusual bruising Neuro Denies dizziness, Denies headache(s) and Denies paresthesias Psych Denies anxiety and Denies depression Endo Denies fatigue and Denies palpitations Hector/Lymph Denies easy bruising Aller/Immun Denies itchy eyes and Denies wheezing Physical exam (Primary Care) Vital Signs: Last Vital Signs Pulse 79 05/03/24 16:31 BP 130/68 05/03/24 16:31 Pulse Ox 96 05/03/24 16:31 Oxygen Delivery Method Room Air 05/03/24 16:31 BMI result Body Mass Index 23.6 Tobacco/Smoking Status: Tobacco use Status Tobacco use date assessed 05/03/24 05/03/24 16:38 Patient Tobacco Use Status Never used Tobacco 05/03/24 17:18 e-Cigarette/Vaping Use Never Used 05/03/24 17:18 PHQ-9: PHQ-9 Score PHQ-9: Total score 0 05/03/24 18:22 Depression Screening Interpretation: Negative Thrive Assessment: Date of Thrive Assessment Date Thrive assessed 05/03/24 05/03/24 16:38 Currently or been in a relationship where the following occur: No concerns reported Const General: no acute distress, alert and awake Orientation/consciousness: [facility] x3 [facility]: Yes normocephalic and Yes atraumatic Ears: external ears normal, TM's normal bilaterally and EAC's normal General nose exam: No nasal discharge present Face and sinus: Yes normal facial exam and Yes sinuses nontender Teeth and gingiva: dentition normal Throat: Yes posterior oropharynx normal and Yes tonsils normal (no TP congestion) Eyes Eyelids: Yes eyelids normal Conjunctivae: conjunctivae normal Pupils: Equal, round and reactive pupils present EOM: EOMs intact bilaterally Neck Neck: Yes no lymphadenopathy and Yes supple Thyroid: Thyroid normal Resp Auscultation: clear to auscultation bilaterally, no rales and no wheezes Cardio Rate: regular rate Rhythm: regular rhythm Heart sounds: no murmurs GI Palpation (GI): Soft to palpation, nontender and No hepatosplenomegaly present Auscultation: normal bowel sounds General: Yes no CVA tenderness Back/Spine/Pelvis Back: no CVA tenderness Thoracic/Lumbar Spine: thoracic and lumbar spine normal to inspection Skin Lesions: no lesions Rashes: no rashes Neuro General: patient oriented x3, moves all extremities, no focal motor deficits and CN's II-XI intact bilaterally Cranial nerves: Yes Equal, round and reactive pupils present Cognition (Neuro): normal cognition Gait exam (Neuro): Normal gait present Extrem General: Yes no clubbing, cyanosis or edema Results Reviewed Results Reviewed: Laboratory Tests 12/05/23 03/29/24 07:21 14:20 WBC 4.3 L Hgb 13.4 Hct 40.5 Plt Count 228 Sodium 140 Potassium 3.5 Creatinine 0.59 Estimated GFR > 60 Fasting Glucose 91 Calcium 9.5 AST 22 ALT 28 Triglycerides 86 Cholesterol 171 LDL Cholesterol, Calc 91 HDL Cholesterol 63 25-OH Vitamin D Total 49.2 TSH 1.82 Free T4 1.15 Urine pH 7.0 Ur Specific [place] <= 1.005 Urine Protein Negative Urine Glucose (UA) Negative Urine Blood Negative Urine Nitrite Negative Ur Leukocyte Esterase Negative Assessment and Plan Assessment & Plan (1) Annual physical exam: Code(s): Z00.00 - Encounter for general adult medical examination without abnormal findings Plan: Results of her labs done a few months ago (December 2023) reviewed and discussed wwith patient She is up-to-date with her annual mammogram and repeat BMD She last had her screening colonoscopy done at [facility] about 10 years ago now and is due for repeat - per request, will refer her to [facility] (per request) for repeat screening colonoscopy States that she was advised by her spray drier operator a few years ago that since she no longer has a cervix, she does not need to continue with her yearly pap smears (2) Pure hypercholesterolemia: Code(s): E78.00 - Pure hypercholesterolemia, unspecified Plan: Reinforced low cholesterol diet Continue Rosuvastatin 20 mg QD Will recheck her labs and fasting lipids in 4 months for follow up (3) Acquired hypothyroidism: Code(s): E03.9 - Hypothyroidism, unspecified Plan: Her TFTs were normal on her labs done back in December 2023 Continue Levothyroxine 88 mcg QD Repeat thyroid US done back in November 2023 revealed no suspicious lesions Will rechech his TFTs in 4 months (4) Osteoporosis: Code(s): M81.0 - Age-related osteoporosis without current pathological fracture Qualifiers: Osteoporosis type: age-related Presence of current pathological fracture: without current pathological fracture Qualified Code(s): M81.0 - Age-related osteoporosis without current pathological fracture Plan: Her BMD done back in November 2023 revealed (+) osteoporosis based on the lowest T-score value of -2.6 in the lumbar spine She recalls taking some bone medication once a week for about 4 to 5 years and was taken off this by her previous doctor about 10 years ago Fall precautions reinforced Her vitamin D level was normal when recently checked in December 2023 Will send her to the lab to check her urinary N-telopeptide for further evaluation Will then consider further treatment with Prolia or Reclast OR refer her to endocrinology for further management (5) Vaginal pruritus: Code(s): N89.8 - Other specified noninflammatory disorders of vagina Plan: Patient is advised that group B strep in the urine does not necessarily mean she has a UTI although she feels very convinced that her symptoms are suggestive of UTI and is requesting Rx for some PCN Reinforced increased oral fluids Will go ahead and start her on a 7 days course of Amoxicillin 500 mg Q 8 hours empirically (6) Colon cancer screening: Code(s): Z12.11 - Encounter for screening for malignant neoplasm of colon Plan: States that she last had her screening colonoscopy done at [facility] about 10 years ago now and she will now need a repeat colonoscopy soon - per request, will refer her to [facility] for repeat colonoscopy Plan Follow up in 4 months Orders: Orders Complete Blood Count Auto Diff 4 Months D64.9 - Anemia, unspecified Thyroid Stimulating Hormone 4 Months E03.9 - Hypothyroidism, unspecified Free T4 (Free Thyroxine) 4 Months E03.9 - Hypothyroidism, unspecified UA CC w/rflx Micro + Cult 4 Months R30.0 - Dysuria Collagen Crosslinks NTX Today M81.0 - Age-related osteoporosis without current pathological fracture Comprehensive [place]. Panel Fast 4 Months E78.00 - Pure hypercholesterolemia, unspecified Lipid Panel 4 Months E78.00 - Pure hypercholesterolemia, unspecified Vitamin D 25-OH Total 4 Months E55.9 - Vitamin D deficiency, unspecified Vitamin B12 and Folate 4 Months E53.8 - Deficiency of other specified B group vitamins Referrals Gastroenterology Referral Z12.11 - Encounter for screening for malignant neoplasm of colon Medications: New amoxicillin 500 mg PO Q8H 7 days 21 tabs 0RF dental prophylaxis Coding Level of Care Code Est Pt Prev Care >65y(97508) Diagnoses Annual physical exam Z00.00 Pure hypercholesterolemia E78.00 Acquired hypothyroidism E03.9 Age-related osteoporosis without current pathological fracture M81.0 Osteoporosis type: age-related Presence of current pathological fracture: without current pathological fracture Vaginal pruritus N89.8 Colon cancer screening Z12.11
== END 2024-05-03 17:22 | disposition home or self-care (01) ==
PROVIDERS: PCP Internal Medicine; Visit Provider Internal Medicine
DX: Z00.00 Encounter for general adult medical examination without abnormal findings (principal); E78.00 Pure hypercholesterolemia, unspecified; E03.9 Hypothyroidism, unspecified; M81.0 Age-related osteoporosis without current pathological fracture; N89.8 Other specified noninflammatory disorders of vagina; Z12.11 Encounter for screening for malignant neoplasm of colon
CPT/HCPCS: 99397

== ENCOUNTER 2024-05-24 07:15 | Outpatient (REF) | payer MEDICARE, SELFPAY ==
[2024-06-03 03:30] LABS: N-Telopeptide 42 (see note); NTXCreaRU 32 mg/dL (20-275)
== END 2024-05-24 07:16 | disposition home or self-care (01) ==
LOC: HO.HMGCLNP 07:15
PROVIDERS: PCP Internal Medicine; Visit Provider Internal Medicine
DX: M81.0 Age-related osteoporosis without current pathological fracture (principal)
CPT/HCPCS: 82523

== ENCOUNTER 2024-08-19 14:05 | Outpatient (AMB) | payer MEDICARE, SELFPAY ==
[2024-08-19 14:06] VITALS: BP 138/76; PULSE 88; TEMP 36.1; O2SAT 98; BMI 24.2
--- NOTE | 2024-08-19 14:06 | MHC.OFFWIV ---
Intake Vital Signs 08/19/24 14:06 Height 5 ft 3 in Weight 136 lb 8 oz BMI 24.2 BP 138/76 Blood Pressure Location Rt brachial Position Sitting Pulse 88 Pulse Source Pulse Oximeter Temp 97.0 F Temp Source Temporal Artery Scan Pulse Oximetry (%) 98 Oxygen Delivery Method Room Air Intake Visit Reasons: EP RT Rib pain Intake Note: Pt presents to the office today for c/o right rib pain that travels to her hip and up to her shoulder. Pt denies any injury. Pt states this pain has been going on for about 1 week. Patient Tobacco Use Status: Never used Tobacco Allergies No Known Allergies Allergy (Verified 08/19/24 14:09) HPI HPI Comments History of Present Illness Details History of Present Illness The patient is a 68-year-old female presenting with right flank pain and concern for renal involvement. She describes experiencing severe pain localized to the right ribs, radiating to the hip and upward to the shoulder blade. The pain has been significant over the past week and is exacerbated by pressure on the area above the kidney. She reports having a urinary tract infection approximately one year ago, which affected the opposite kidney, but denies any current urinary symptoms, such as dysuria, hematuria, or fever. She has no history of renal stones but has undergone a cholecystectomy for cholelithiasis. The patient indicates that the pain intensifies with movement and is limited to the right side. Physical Exam General: Cooperative, healthy appearing, comfortable, no acute distress and well developed Orientation: Patient oriented x3 Limitations: Pain with movement, particularly when standing or moving on the right side Head: Normal to inspection Ears: Hearing grossly normal bilaterally Nose: Normal external nose present Face and sinus: Normal facial exam Eyes: Appearance normal, both eyes and all related structures Neck: Normal visual inspection and Yes full ROM Respiratory: Normal respiratory effort and able to speak in complete sentences. : + right sided CVA Skin: No rashes or lesions noted Neuro: Patient oriented x3 Extremities: Normal to inspection PFSH Medical History Osteoporosis Acquired hypothyroidism Pure hypercholesterolemia Surgical History Hx of hysterectomy History of cholecystectomy Social History Housing: House Alcohol intake: never Patient Tobacco Use Status: Never used Tobacco e-Cigarette/Vaping Use: Never Used Second Hand Smoke Exposure: No service: No Current occupational status: retired Gender identity: Female Cognitive needs: No Hearing needs: No Vision needs: Yes (reading glasses) Review of Systems Const All systems reviewed & are unremarkable except as noted in HPI and below Physical Exam Vital Signs: Last Vital Signs Temp 97.0 F 08/19/24 14:06 Pulse 88 08/19/24 14:06 BP 138/76 08/19/24 14:06 Pulse Ox 98 08/19/24 14:06 Oxygen Delivery Method Room Air 08/19/24 14:06 BMI result Body Mass Index 24.2 Results AMB Urinalysis, Automated UA Leukoctes 0 Niru/uL Last Edit by Keira Abad CMA on 08/19/24 14:38 UA Nitrite Negative Last Edit by Keira Abad CMA on 08/19/24 14:38 UA Urobilinogen 0.2 mg/dL Last Edit by Keira Abad CMA on 08/19/24 14:38 UA Protein 0 mg/dL Last Edit by Keira Abad CMA on 08/19/24 14:38 UA pH 6.0 Last Edit by Keira Abad CMA on 08/19/24 14:38 UA Blood 0 Reji/uL Last Edit by Keira Abad CMA on 08/19/24 14:38 UA Specific [place] 1.010 Last Edit by Keira Abad CMA on 08/19/24 14:38 UA Ketone Negative Last Edit by Keira Abad CMA on 08/19/24 14:38 UA Bilirubin 0 mg/dL Last Edit by Keira Abad CMA on 08/19/24 14:38 UA Glucose 0 mg/dL Last Edit by Keira Abad CMA on 08/19/24 14:38 Assessment & Plan Assessment & Plan (1) Acute right flank pain: Code(s): R10.9 - Unspecified abdominal pain Plan: Plan - Perform urinalysis to check for microscopic hematuria that may indicate nephrolithiasis and rule out UTI. - Sent message to PCP to consider ultrasound to evaluate for nephrolithiasis, contingent on approval and scheduling. Advised pt will hear back from her PCP office with answer. If her pain gets worse, she needs to go to the ED for emergent workup. Did KUB for now to see if any stones show up. - Patient is advised that if nephrolithiasis is suspected, she may need a comprehensive workup to be done at the emergency department, which may include an ultrasound performed there. Patient was informed and verbally consented to the use of an ambient scribe for clinic note documentation during this visit. Orders: Orders AMB Urinalysis Automated Today Z13.9 - Encounter for screening, unspecified XR KUB Today R10.9 - Unspecified abdominal pain Coding Level of Care Code Est Pt Level 4 (91201) Diagnoses Acute right flank pain R10.9
== END 2024-08-19 14:51 | disposition home or self-care (01) ==
PROVIDERS: PCP Internal Medicine; Visit Provider Physician Assistant
DX: R10.9 Unspecified abdominal pain (principal); Z13.9 Encounter for screening, unspecified

== ENCOUNTER 2024-08-19 14:05 | Outpatient (REF) | payer MEDICARE, SELFPAY ==
--- NOTE | ~2024-08-19 | XR_ITS ---
EXAMINATION: XR ABDOMEN KUB CLINICAL INDICATION: R10.9 - Unspecified abdominal pain COMPARISON: None available. TECHNIQUE: 2 AP views of the abdomen. FINDINGS: Levoscoliosis of the lumbar spine with multilevel degenerative changes. Surgical clips right upper quadrant. Moderate to large amount of stool in the colon. Nonobstructive bowel gas pattern. Surgical clip right lower quadrant. Tiny 2 mm calcification right upper quadrant. XR/XR KUB IMPRESSION: 1. Moderate to large amount of stool in the colon. Nonobstructive bowel gas pattern. Surgical clip right lower quadrant. 2. Tiny 2 mm calcification right upper quadrant. This study was presented today to August 20, 2024 for interpretation. Stat results provided at this time as requested by referring provider. Electronically signed by: Quiana Tony MD 08/20/2024 09:11 AM ITTA DOAN
== END 2024-08-19 14:06 | disposition home or self-care (01) ==
LOC: HO.HMGCX 14:05
PROVIDERS: PCP Internal Medicine; Visit Provider Physician Assistant
DX: R10.9 Unspecified abdominal pain (principal)
CPT/HCPCS: 74018; 81003; 99212

== ENCOUNTER 2024-08-22 13:56 | Outpatient (REF) | payer MEDICARE, SELFPAY | END 2024-08-22 13:57 | disposition home or self-care (01) | LOC: HO.HMGCX 13:56 | PROVIDERS: PCP Internal Medicine; Visit Provider Internal Medicine | DX: R10.9 Unspecified abdominal pain (principal) | CPT/HCPCS: 76775 ==

== ENCOUNTER 2024-09-16 07:56 | Outpatient (REF) | payer MEDICARE, SELFPAY ==
[2024-09-16 09:58] LABS: MANUAL DIFF FLAG NO
[2024-09-16 10:02] LABS: Appearance Urine Clear; Color Urine Yellow; Glucose Urine UA Negative (Negative); Leukocyte Esterase Urine Trace (Negative); Nitrite Urine Negative (Negative); PH 7.5 (5.0-9.0); Specific Gravity - Urine <= 1.005 (1.005-1.025); UMIC TRIGGER UACC YES; Urine Blood Negative (Negative); Urine Ketones Negative (Negative); Urine Protein Negative (Neg-Trace)
[2024-09-16 10:03] LABS: Basophils Percent Auto 0.9 % (0-2); Eosinophils Absolute Auto 0.1 X10*3/uL (0.0-0.4); Eosinophils Percent Auto 2.6 % (0-4); Hematocrit 41.1 % (37.0-47.0); Imm Gran Abs Auto 0.02 X10*3/uL (0.00-0.03); Imm Gran Pct Auto 0.4 % (0.0-0.4); Lymphocytes Absolute Auto 1.6 X10*3/uL (1.2-4.9); Lymphocytes Percent Auto 33.4 % (20-40); Mean Corpuscular HGB Conc 34.1 g/dl (31.0-35.0); Mean Corpuscular Hemoglobin 30.6 pg (27.0-33.0); Mean Corpuscular Volume 89.9 fL (80.0-98.0); Mean Platelet Volume 9.8 fL (9.4-12.3); Monocytes Absolute Auto 0.4 X10*3/uL (0.1-1.2); Monocytes Percent Auto 7.5 % (2-11); Neutrophils Absolute Auto 2.6 x10*3/uL (2.0-8.3); Neutrophils Percent Auto 55.2 % (45-73); Platelet Count 252 X10*3/uL (160-400); Red Blood Count 4.57 X10*6/uL (4.20-5.50); Red Cell Distribution Width 12.2 % (11.0-16.0); White Blood Count 4.6 X10*3/uL (4.8-10.8)
[2024-09-16 10:06] LABS: Bacteria Urine None Seen (None Seen); Hyaline Casts Urine 0-2 /LPF (0-2); RBC Urine 0-2 /HPF (0-2); Squamous Epithelial Cell Urine 0-2 /HPF (0-2); WBC Urine 0-5 /HPF (0-5)
[2024-09-16 10:39] LABS: Albumin Level 4.2 g/dL (3.5-5.0); Alkaline Phosphatase 65 U/L (39-117); Anion Gap 8 (12-20); Aspartate Amino Transferase 27 U/L (5-31); Bilirubin Total 0.5 mg/dL (0.0-1.0); Blood Urea Nitrogen 11 mg/dL (9-16); Calcium 9.4 mg/dL (8.4-10.2); Carbon Dioxide 29 mmol/L (22-29); Chloride 104 mmol/L (96-108); Cholesterol 153 mg/dL (<200); Estimated Glomerular Filt Rate > 60; Free T4 (Free Thyroxine) 1.09 ng/dL (0.71-1.85); Glucose Fasting 111 mg/dL (60-99); HDL Cholesterol 56 mg/dL (>40); LDL Cholesterol Calculated 78 mg/dL (<100); Potassium 3.9 mmol/L (3.3-5.1); Sodium 137 mmol/L (135-145); Thyroid Stimulating Hormone 1.41 uIU/mL (0.32-4.0); Total Protein 6.8 g/dL (6.5-8.0); Triglycerides 97 mg/dL (<150); Vitamin D 25-OH Total 38.3 ng/mL (>30)
[2024-09-16 10:48] LABS: Alanine Aminotransferase 33 U/L (0-31)
[2024-09-16 11:40] LABS: Folate 16.3 ng/mL (> or = 4.0); Vitamin B12 660 pg/mL (200-900)
== END 2024-09-16 07:57 | disposition home or self-care (01) ==
LOC: HO.HMGCLDS 07:56
PROVIDERS: PCP Internal Medicine; Visit Provider Internal Medicine
DX: D64.9 Anemia, unspecified (principal); E03.9 Hypothyroidism, unspecified; E78.00 Pure hypercholesterolemia, unspecified; E53.8 Deficiency of other specified B group vitamins; E55.9 Vitamin D deficiency, unspecified; R30.0 Dysuria
CPT/HCPCS: 36415; 80053; 80061; 81001; 81003; 82306; 82607; 82746; 84439; 84443; 85025

== ENCOUNTER 2024-09-23 15:44 | Outpatient (AMB) | payer MEDICARE, SELFPAY ==
[2024-09-23 15:58] VITALS: BP 120/82; PULSE 72; TEMP 36.6; O2SAT 95; BMI 24.4
--- NOTE | 2024-09-23 15:58 | MHC.PC.OV ---
Vital Signs 09/23/24 15:58 Height 5 ft 3 in Weight 138 lb BMI 24.4 BP 120/82 Blood Pressure Location Lt brachial Position Sitting Pulse 72 Pulse Source Pulse Oximeter Temp 97.8 F Temp Source Temporal Artery Scan Pulse Oximetry (%) 95 Oxygen Delivery Method Room Air Intake Visit Reasons: hyperlipidemia, hypothyroidism, osteoporosis Sustainable Systems Analyst Required: No Accompanied by: Self / Same As Patient Allergies No Known Allergies Allergy (Verified 09/23/24 16:33) Medication List - Last Reconciled 09/23/24 by Antoni Torres MD levothyroxine 88 mcg PO DAILY 90 days multivit with min-folic acid 0.4 mg (One-A-Day Women's 50 Plus) 1 tab PO DAILY rosuvastatin 20 mg PO DAILY 90 days Tobacco use date assessed: 09/23/24 Fall risk assessment: No Falls in past year Last assessed Fall Risk: 09/23/24 Dental Screening Dental Screen Date: 09/23/24 Did you have a dental visit in the last 12 months?: Yes Did you have a dental problem in the last 6 months where you did not have access to dental care?: No Was dental information given to patient?: Patient has dentist HPI hyperlipidemia, hypothyroidism, osteoporosis HPI Details Patient comes in today for her follow up visit States that she has been experiencing recurrent right upper abdominal and adjacent right flank pain since last month States that the pain sometimes feel like it is radiating down into her proximal right thigh and that eating, drinking or bowel movements/using the bathroom does not seem to affect her symptoms or make them worse She went to urgent care in [place] last month for the same complaints and was sent for a KUB for further evaluation Urinalysis done at the time as unremarkable Her KUB revealed (+) moderate to large amount of stool in the colon, nonobstructive bowel gas pattern, a surgical clip is present in the right lower quadrant and (+) tiny 2 mm calcification at the right upper quadrant She was then sent for renal US for further evaluation - this was done a month ago on 08/22/2024 but there is still no report available in her chart regarding this at present Patient states that she tried to access this on her patient portal earlier today but could not find any report as well She denies any headaches or dizziness Denies any chest pains, no SOB No nausea/vomiting and no change in bowel habits noted - states that she has been moving her bowels okay without any problems Needs both of her prescription meds Rx refilled today She had her follow up labs done last week - to discuss her results Patient adds that she took Alendronate for about 5 years in the past for her osteoporosis and she completed her 5 years of Alendronate Tx about 10 years ago now and has not been on any other Rx for her bones since; is wondering if Ibandronate would be helpful as she only has to take it once a month compared to the weekly dose she had to take before She is also requesting for a referral to see Dr. Emmanuel in [place] for her bladder prolapse issues [facility] Medical History (Updated 09/23/24 @ 17:09 by Antoni Torres MD) Lumbar degenerative disc disease Bladder prolapse, female, acquired Osteoporosis Acquired hypothyroidism Pure hypercholesterolemia Surgical History Hx of hysterectomy History of cholecystectomy Social History Housing: House Alcohol intake: never Patient Tobacco Use Status: Never used Tobacco e-Cigarette/Vaping Use: Never Used Second Hand Smoke Exposure: No service: No Current occupational status: retired Gender identity: Female Cognitive needs: No Hearing needs: No Vision needs: Yes (reading glasses) Questionnaire PHQ-9 Over the last 2 weeks, how often have you been bothered by any of the following problems? 1. Little interest or pleasure in doing things: not at all 2. Feeling down, depressed, or hopeless: not at all 3. Trouble falling or staying asleep, or sleeping too much: not at all 4. Feeling tired or having little energy: not at all 5. Poor appetite or overeating: not at all 6. Feeling bad about yourself - or that you are a failure or have let yourself or your family down: not at all 7. Trouble concentrating on things, such as reading the newspaper or watching television: not at all 8. Moving or speaking so slowly that other people could have noticed. Or the opposite - being so fidgety or restless that you have been moving around a lot more than usual: not at all 9. Thoughts that you would be better off or of hurting yourself in some way: not at all Total score: 0 Depression Screening Interpretation: Negative Depression Screening Done: Yes 11327 - PHQ-9 Billing: Yes Source: Developed by Drs. Justin Mitchell, Monalisa Choi, Bryce Flores and colleagues, with an educational anais from [employer]. Thrive Questionnaire Date Thrive assessed: 09/23/24 I am a: Patient What is your living situation today?: I have a steady place to live Within the past 12 months, did the food you bought not last and you didn't have the money to get more?: Never true Within the past 12 months, did you worry whether your food would run out before you got money to buy more?: Never true Do you have trouble paying for medicines?: No Do you have trouble getting transportation to medical appointments?: No Do you have trouble paying your heating and electricity bill?: No Do you have trouble taking care of your child, family member or friend?: No Do you have trouble with day-to-day activities such as bathing, preparing meals, shopping, managing finances, etc.?: No Are you currently unemployed and looking for a job?: No Are you interested in more education?: No Please select the resources that you would like help with: None Currently or been in a relationship where the following occur: No concerns reported THRIVE Score: 0 AUDIT C Alcohol Use Questionnaire (AUDIT-C) 1. How often do you have a drink containing alcohol?: Never 3. How often do you have six or more drinks on one occasion?: Never Total Score: 0 Score Reviewed/Action Taken: Yes CONNIE-7 AMB Questionnaire CONNIE-7 Date CONNIE - 7 assessed: 09/23/24 Feeling nervous, anxious, or on edge: 0 = Not at all Not being able to stop or control worryin = Not at all Worrying too much about different things: 0 = Not at all Trouble relaxin = Not at all Being so restless that it is hard to sit still: 0 = Not at all Becoming easily annoyed or irritable: 0 = Not at all Feeling afraid as if something awful might happen: 0 = Not at all Total CONNIE-7 score (0-4 normal; 5-9 mild; 10-14 moderate; 15-21 severe): 0 Source: Developed by Drs. Justin Mitchell, Monalisa Choi, Bryce Flores and colleagues, with an educational anais from [employer]. Review of Systems Const Denies chills, Denies fatigue, Denies fever(s) and Denies headache(s) ENT Denies dysphagia, Denies dizziness, Denies otalgia, Denies headache(s), Denies neck pain, Denies odynophagia and Denies sore throat Card Denies chest pain, Denies irregular heart rhythm, Denies palpitations and Denies dyspnea Resp Denies chest congestion, Denies cough and Denies dyspnea GI Reports abdominal pain (recurrent, over the right upper abdomen - see HPI), Denies constipation, Denies dysphagia, Denies heartburn, Denies diarrhea, Denies nausea, Denies odynophagia and Denies vomiting Details: recurrent pain over the right flank area for the past month or so Denies urinary frequency, Denies dysuria, Reports prolapse symptoms (due to bladder prolapse), Reports urinary incontinence and Denies urinary urgency Musc Reports back pain (over the lower back, mild), Denies arthralgias and Denies neck pain Skin/Breast Denies rash Neuro Denies dizziness, Denies headache(s) and Denies paresthesias Psych Denies anxiety and Denies depression Endo Denies fatigue and Denies palpitations Hector/Lymph Denies easy bruising Physical exam (Primary Care) Vital Signs: Last Vital Signs Temp 97.8 F 09/23/24 15:58 Pulse 72 09/23/24 15:58 BP 120/82 09/23/24 15:58 Pulse Ox 95 09/23/24 15:58 Oxygen Delivery Method Room Air 09/23/24 15:58 BMI result Body Mass Index 24.4 Tobacco/Smoking Status: Tobacco use Status Tobacco use date assessed 09/23/24 09/23/24 16:02 Patient Tobacco Use Status Never used Tobacco 09/23/24 16:02 e-Cigarette/Vaping Use Never Used 09/23/24 16:02 PHQ-9: PHQ-9 Score PHQ-9: Total score 0 09/23/24 16:37 Depression Screening Interpretation: Negative Thrive Assessment: Date of Thrive Assessment Date Thrive assessed 09/23/24 09/23/24 16:02 Currently or been in a relationship where the following occur: No concerns reported Const General: no acute distress and alert HENMT Ears: TM's normal bilaterally and EAC's normal Throat: Yes posterior oropharynx normal and Yes tonsils normal (no TP congestion) Neck Neck: Yes supple and No lymphadenopathy Thyroid: Thyroid normal Resp Auscultation: clear to auscultation bilaterally, no rales and no wheezes Cardio Rate: regular rate Rhythm: regular rhythm Heart sounds: no murmurs GI Palpation (GI): Soft to palpation, Tenderness to palpation present (GI) (mild, over the right upper abdomen just under the ribs), no guarding, not rigid, No hepatosplenomegaly present and No Rebound tenderness present Auscultation: normal bowel sounds General: Yes CVA tenderness (mild tenderness around the right flank area on palpation) Back/Spine/Pelvis Back: CVA tenderness (mild tenderness around the right flank area on palpation) Thoracic/Lumbar Spine: lumbar spinal tenderness (mild) Skin Rashes: no rashes Extrem General: Yes no clubbing, cyanosis or edema Results Reviewed Results Reviewed: Laboratory Tests 09/16/24 09/16/24 08:05 08:50 WBC 4.6 L Hgb 14.0 Hct 41.1 Plt Count 252 Sodium 137 Potassium 3.9 Creatinine 0.66 Estimated GFR > 60 Fasting Glucose 111 H Calcium 9.4 AST 27 ALT 33 H Triglycerides 97 Cholesterol 153 LDL Cholesterol, Calc 78 HDL Cholesterol 56 Vitamin B12 660 25-OH Vitamin D Total 38.3 TSH 1.41 Free T4 1.09 Urine pH 7.5 Ur Specific [place] <= 1.005 Urine Protein Negative Urine Glucose (UA) Negative Urine Blood Negative Urine Nitrite Negative Ur Leukocyte Esterase Trace H Coding Level of Care Code Est Pt Level 4 (06551) Diagnoses Pure hypercholesterolemia E78.00 Acquired hypothyroidism E03.9 Age-related osteoporosis without current pathological fracture M81.0 Osteoporosis type: age-related Presence of current pathological fracture: without current pathological fracture Right sided abdominal pain R10.9 Bladder prolapse, female, acquired N81.10 Additional Codes PHQ-9 - 66535 - PHQ-9 Billing: Yes ([id number]) Assessment & Plan Assessment & Plan (1) Pure hypercholesterolemia: Code(s): E78.00 - Pure hypercholesterolemia, unspecified Category: Medical Plan: Results of her labs done a couple of weeks ago reviewed and discussed with patient Reinforced low cholesterol diet Continue Rosuvastatin 20 mg QD Will recheck her labs and fasting lipids in 4 months for follow up (2) Acquired hypothyroidism: Code(s): E03.9 - Hypothyroidism, unspecified Category: Medical Plan: Her TFTs were normal on her recent labs Continue Levothyroxine 88 mcg QD Repeat thyroid US done back in November 2023 revealed no suspicious lesions Will recheck her TFTs in 4 months for follow up (3) Osteoporosis: Code(s): M81.0 - Age-related osteoporosis without current pathological fracture Category: Medical Qualifiers: Osteoporosis type: age-related Presence of current pathological fracture: without current pathological fracture Qualified Code(s): M81.0 - Age-related osteoporosis without current pathological fracture Plan: Her most recent BMD done back in November 2023 revealed (+) osteoporosis based on the lowest T-score value of -2.6 in the lumbar spine She recalls taking Alendronate once a week for about 4 to 5 years and was taken off this by her previous doctor over 10 years ago Fall precautions reinforced Her vitamin D level was normal on her recent labs Her urinary N-telopeptide came back normal Am considering further treatment with Prolia or Reclast OR refer her to endocrinology for further management Have advised patient that as she has already completed Tx with Alendronate, she cannot take Ibandronate as it is also a bisphosphonate similar to Alendronate (4) Right sided abdominal pain: Code(s): R10.9 - Unspecified abdominal pain Category: Medical Plan: Patient had renal US done last month on 08/22/2025 but the reports is still NOT available at this time Will have the office staff reach out to radiology to see if they can get this reading expedited For completion, will also send the patient for x-rays of the lumbar spine as well as the right hip for further evaluation Have advised patient that if abdominal symptoms persist and her sonogram came back unrevealing, we will consider sending her for abdominal CT for further evaluation (patient is requesting to have this scheduled over at [facility] if it needed to be done) (5) Bladder prolapse, female, acquired: Code(s): N81.10 - Cystocele, unspecified Category: Medical Plan: Per request, will refer her to Dr. Emmanuel for further evaluation and management Plan Follow up in 4 months Orders: Orders Complete Blood Count Auto Diff 4 Months D64.9 - Anemia, unspecified Comprehensive [place]. Panel Fast 4 Months E78.00 - Pure hypercholesterolemia, unspecified Vitamin D 25-OH Total 4 Months E55.9 - Vitamin D deficiency, unspecified UA CC w/rflx Micro + Cult 4 Months R30.0 - Dysuria XR hip RT min 2V Today M25.551 - Pain in right hip XR lumbar spine 2-3V Today M54.50 - Low back pain, unspecified Lipid Panel 4 Months E78.00 - Pure hypercholesterolemia, unspecified Free T4 (Free Thyroxine) 4 Months E03.9 - Hypothyroidism, unspecified Thyroid Stimulating Hormone 4 Months E03.9 - Hypothyroidism, unspecified Referrals Urology Referral N81.10 - Cystocele, unspecified Medications: Refilled rosuvastatin 20 mg PO DAILY 90 days 90 tabs 3RF levothyroxine 88 mcg PO DAILY 90 days 90 tabs 3RF
== END 2024-09-23 16:54 | disposition home or self-care (01) ==
PROVIDERS: PCP Internal Medicine; Visit Provider Internal Medicine
DX: E78.00 Pure hypercholesterolemia, unspecified (principal); E03.9 Hypothyroidism, unspecified; M81.0 Age-related osteoporosis without current pathological fracture; R10.9 Unspecified abdominal pain; N81.10 Cystocele, unspecified

== ENCOUNTER → 2024-09-23 15:44 | Outpatient (BNVA) | payer MEDICARE, SELFPAY | PROVIDERS: PCP Internal Medicine; Visit Provider Internal Medicine | DX: E78.00 Pure hypercholesterolemia, unspecified (principal); E03.9 Hypothyroidism, unspecified; M81.0 Age-related osteoporosis without current pathological fracture; R10.9 Unspecified abdominal pain; N81.10 Cystocele, unspecified | CPT/HCPCS: 96127; 99212 ==

== ENCOUNTER 2025-04-21 07:58 | Outpatient (REF) | payer MEDICARE, SELFPAY ==
--- NOTE | ~2025-04-21 | XR_ITS ---
EXAMINATION: XR LUMBAR SPINE 2-3 VIEWS HISTORY: M54.50 - Low back pain, unspecified COMPARISON: There are no prior studies for comparison. FINDINGS: AP, lateral, and coned down views of the lumbar spine are submitted. The bones are osteopenic. There is moderate to severe rotatory levoscoliosis. The vertebral bodies maintain normal height. There is no spondylolisthesis. There is moderate degenerative disc disease with disc space narrowing and osteophyte formation. The visualized paraspinal soft tissues are unremarkable. XR/XR lumbar spine 2-3V IMPRESSION: Moderate to severe rotatory levoscoliosis. Moderate degenerative disc disease. Electronically signed by: Justin Jacobs MD 04/21/2025 09:27 AM EDT
--- NOTE | ~2025-04-21 | XR_ITS ---
EXAMINATION: XR HIP 2 OR MORE VIEWS RIGHT HISTORY: M25.551 - Pain in right hip COMPARISON: There are no prior studies available for comparison. FINDINGS: Two views of the right hip are submitted. Osseous mineralization is normal. There is no fracture or dislocation. The joint space is maintained. The soft tissues are unremarkable. XR/XR hip RT min 2V IMPRESSION: Unremarkable examination of the right hip. Electronically signed by: Justin Jacobs MD 04/21/2025 09:13 AM EDT
--- OUTSIDE RECORDS SUMMARY | 2025-04-21 08:02 | XMS_ITS | Encounter Summary ---
Author Organization [facility] Address [address] [place] [address] Care Team Providers Care Horse Trainer Name Role Phone Antoni Torres MD Primary Care Provider + [phone] Encounter Details Date Type Department Care Team (Late Contact Info) Description 12/04/2024 Lab Requisition [facility] - Main Lab [address] [facility] [place] [address] Scott Emmanuel MD [address] [phone] Urinary tract infection, site not specified Social History Tobacco Use Types Packs/Day Years Used Date Smoking Tobacco: Never Assessed Comments Unknown Sex and Gender Information Value Date Recorded Sex Assigned at Not on file Legal Sex Female 8:48 AM EST Gender Identity Not on file Sexual Orientation Not on file documented as of this encounter Plan of Treatment Upcoming Encounters Date Type Department Care Team (Late Contact Info) Description 05/20/2025 10:45 AM EDT Consult General Surgery - [place] [address] [facility] [address] [place] [id number] Reinier Payan MD 175 [facility] [address] [place], [place] [phone] documented as of this encounter Procedures Procedure Name Priority Date/Time Associated Diagnosis Comments CULTURE URINE Routine 12/04/2024 12:00 AM EDT Urinary tract infection, site not specified documented in this encounter Results * (ABNORMAL) Culture urine (12/04/2024 12:00 AM EDT) Culture, Urine 10,000-49,000 CFU/mL Streptococcus beta-hemolytic Group B(A) 12/05/2024 2:28 PM EDT [facility] Comment: Susceptibility testing is not routinely performed for Beta Streptococcus isolates since these organisms are predictably sensitive to Penicillin. If the Patient is not responding, is allergic to Penicillin, or further therapeutic information is requir ed, please consult an Infectious Disease Specialist. Urine Urine specimen obtained by clean catch procedure / Unknown 12/04/2024 12/04/2024 6:04 PM EDT Narrative [facility] - 12/05/2024 2:28 PM EDT Additional colony types present in insignificant amounts. us Scott Emmanuel MD LAB MICROBIOLOGY - GENERA L ORDERABLES Final Result [facility] [address] [place] [address], documented in this encounter Visit Diagnoses Diagnosis Urinary tract infection, site not specified documented in this encounter Care Teams Horse Trainer Relationship Specialty Start Date End Date Antoni Torres MD [address] [place] [address] Dr [address] [employer] [place] PCP - General Internal Medicine 02/11/25 documented as of this encounter
[2025-04-21 09:58] LABS: MANUAL DIFF FLAG NO
[2025-04-21 10:01] LABS: Appearance Urine Clear; Glucose Urine UA Negative (Negative); PH 8.0 (5.0-9.0); Specific Gravity - Urine <= 1.005 (1.005-1.025)
[2025-04-21 10:03] LABS: Hematocrit 38.6 % (37.0-47.0); Hemoglobin 13.3 g/dl (12.0-16.0); Imm Gran Abs Auto 0.00 X10*3/uL (0.00-0.03); Imm Gran Pct Auto 0.0 % (0.0-0.4); Lymphocytes Absolute Auto 1.5 X10*3/uL (1.2-4.9); Mean Corpuscular HGB Conc 34.5 g/dl (31.0-35.0); Mean Corpuscular Hemoglobin 31.1 pg (27.0-33.0); Mean Corpuscular Volume 90.4 fL (80.0-98.0); NRBC Abs Auto 0.000 X10*3/uL (0.0-0.012); NRBC Pct Auto 0.0 /100WBC (0.0-0.2); Platelet Count 232 X10*3/uL (160-400); Red Blood Count 4.27 X10*6/uL (4.20-5.50); White Blood Count 4.3 X10*3/uL (4.8-10.8)
[2025-04-21 10:59] LABS: Alanine Aminotransferase 41 U/L (0-31); Albumin Level 4.5 g/dL (3.5-5.0); Alkaline Phosphatase 73 U/L (39-117); Anion Gap 14 (12-20); Aspartate Amino Transferase 32 U/L (5-31); Blood Urea Nitrogen 15 mg/dL (9-16); Calcium 9.4 mg/dL (8.4-10.2); Carbon Dioxide 27 mmol/L (22-29); Chloride 104 mmol/L (96-108); Cholesterol 159 mg/dL (<200); Estimated Glomerular Filt Rate > 60; Free T4 (Free Thyroxine) 1.16 ng/dL (0.71-1.85); HDL Cholesterol 56 mg/dL (>40); Potassium 4.3 mmol/L (3.3-5.1); Sodium 141 mmol/L (135-145); Thyroid Stimulating Hormone 1.22 uIU/mL (0.32-4.0); Total Protein 6.8 g/dL (6.5-8.0); Triglycerides 103 mg/dL (<150)
== END 2025-04-21 07:59 | disposition home or self-care (01) ==
LOC: HO.HMGCX 07:58
PROVIDERS: PCP Internal Medicine; Visit Provider Internal Medicine
DX: R30.0 Dysuria (principal); M25.551 Pain in right hip; E55.9 Vitamin D deficiency, unspecified; E03.9 Hypothyroidism, unspecified; D64.9 Anemia, unspecified; E78.00 Pure hypercholesterolemia, unspecified; M54.50 Low back pain, unspecified
CPT/HCPCS: 36415; 72100; 73502; 80053; 80061; 81003; 82306; 84439; 84443; 85025

== ENCOUNTER → 2025-04-21 08:30 | Outpatient (BNV) | payer MEDICARE, SELFPAY | PROVIDERS: PCP Internal Medicine; Visit Provider Radiology Diagnostic Radiology | DX: M51.360 Other intervertebral disc degeneration, lumbar region with discogenic back pain only (principal); M25.551 Pain in right hip | CPT/HCPCS: 72100; 73502 ==

== ENCOUNTER 2025-05-06 16:36 | Outpatient (AMB) | payer MEDICARE, SELFPAY ==
[2025-05-06 16:40] VITALS: BP 140/72; PULSE 77; RESP 18; TEMP 36.4; O2SAT 97; BMI 23.6
--- NOTE | 2025-05-06 16:40 | MHC.PC.OV ---
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 Accompanied by: Self / Same As Patient Allergies No Known Allergies Allergy (Verified 05/06/25 17:25) Medication List - Last Reconciled 05/06/25 by Antoni Torres MD levothyroxine 88 mcg PO DAILY 90 days multivit with min-folic acid 0.4 mg (One-A-Day Women's 50 Plus) 1 tab PO DAILY rosuvastatin 20 mg PO DAILY 90 days Tobacco use date assessed: 05/06/25 Fall risk assessment: No Falls in past year Last assessed Fall Risk: 05/06/25 Dental Screening Dental Screen Date: 05/06/25 Did you have a dental visit in the last 12 months?: Yes Did you have a dental problem in the last 6 months where you did not have access to dental care?: No Was dental information given to patient?: Patient has dentist HPI Annual physical HPI Details Patient comes in today for her annual physical examination States that she has been experiencing some mild chest congestion and on and off non-productive coughing for the past 4 to 5 days now States that she has no sore throat or any increased nasal and sinus congestion so she does not think that she has COVID but would like to see if she can get chest x-rays done just to be sure She denies any fever, headaches or dizziness Denies any chest pains, no increased SOB No nausea/vomiting, no abdominal pain No change in bowel habits noted She denies any acute urinary symptoms She had her follow up labs done a couple of weeks ago - to discuss her results States that she is up-to-date with all of her cancer screenings except for her colonoscopy - she had her annual mammogram done at [place] a couple of months ago on 02/28/2025 - mammogram came out normal States that she had a complete hysterectomy done years ago and she no longer has to keep up with her yearly gynecology exam and pap smear She had her screening colonoscopy last done over 10 years ago and she is now due for repeat colonoscopy - she would like to be referred to [facility] for this Her BMDs were done on 08/26/2021 at [place] and she had this repeated at [facility] last year (2023), which showed (+) progression to osteoporosis Patient was treated with Alendronate x 5 years and states that she stopped taking this some time ago but cannot remember exactly when [facility] Medical History Lumbar degenerative disc disease Bladder prolapse, female, acquired Osteoporosis Acquired hypothyroidism Pure hypercholesterolemia Surgical History Hx of hysterectomy History of cholecystectomy Social History Housing: House Alcohol intake: never Patient Tobacco Use Status: Never used Tobacco e-Cigarette/Vaping Use: Never Used Second Hand Smoke Exposure: No service: No Current occupational status: retired Gender identity: Female Cognitive needs: No Hearing needs: No Vision needs: Yes (reading glasses) Questionnaire PHQ-9 Over the last 2 weeks, how often have you been bothered by any of the following problems? 1. Little interest or pleasure in doing things: not at all 2. Feeling down, depressed, or hopeless: not at all 3. Trouble falling or staying asleep, or sleeping too much: not at all 4. Feeling tired or having little energy: not at all 5. Poor appetite or overeating: not at all 6. Feeling bad about yourself - or that you are a failure or have let yourself or your family down: not at all 7. Trouble concentrating on things, such as reading the newspaper or watching television: not at all 8. Moving or speaking so slowly that other people could have noticed. Or the opposite - being so fidgety or restless that you have been moving around a lot more than usual: not at all 9. Thoughts that you would be better off or of hurting yourself in some way: not at all Total score: 0 Depression Screening Interpretation: Negative Depression Screening Done: Yes 08166 - PHQ-9 Billing: Yes Source: Developed by Drs. Justin Mitchell, Monalisa Choi, Bryce Flores and colleagues, with an educational anais from [employer]. Thrive Questionnaire Date Thrive assessed: 05/06/25 I am a: Patient What is your living situation today?: I have a steady place to live Within the past 12 months, did the food you bought not last and you didn't have the money to get more?: Never true Within the past 12 months, did you worry whether your food would run out before you got money to buy more?: Never true Do you have trouble paying for medicines?: No Do you have trouble getting transportation to medical appointments?: No Do you have trouble paying your heating and electricity bill?: No Do you have trouble taking care of your child, family member or friend?: No Do you have trouble with day-to-day activities such as bathing, preparing meals, shopping, managing finances, etc.?: No Are you currently unemployed and looking for a job?: No Are you interested in more education?: No Please select the resources that you would like help with: None Currently or been in a relationship where the following occur: No concerns reported THRIVE Score: 0 AUDIT C Alcohol Use Questionnaire (AUDIT-C) 1. How often do you have a drink containing alcohol?: Never Total Score: 0 Score Reviewed/Action Taken: Yes CONNIE-7 AMB Questionnaire CONNIE-7 Date CONNIE - 7 assessed: 05/06/25 Feeling nervous, anxious, or on edge: 0 = Not at all Not being able to stop or control worryin = Not at all Worrying too much about different things: 0 = Not at all Trouble relaxin = Not at all Being so restless that it is hard to sit still: 0 = Not at all Becoming easily annoyed or irritable: 0 = Not at all Feeling afraid as if something awful might happen: 0 = Not at all Total CONNIE-7 score (0-4 normal; 5-9 mild; 10-14 moderate; 15-21 severe): 0 Source: Developed by Drs. Justin Mitchell, Monalisa Choi, Bryce Flores and colleagues, with an educational anais from [employer]. Review of Systems Const Denies chills, Denies fatigue, Denies fever(s), Denies headache(s) and Denies malaise Eyes Denies blurry vision, Denies change in vision, Denies irritation and Denies itchy eyes ENT Denies dysphagia, Denies dizziness, Denies otalgia, Denies headache(s), Denies nasal congestion, Denies neck pain, Denies odynophagia, Denies sinus pain and Denies sore throat Card Denies chest pain, Denies rapid heart rate, Denies irregular heart rhythm, Denies palpitations and Denies dyspnea Resp Denies chest congestion, Denies cough, Denies dyspnea and Denies wheezing GI Denies abdominal pain, Denies bloating, Denies constipation, Denies dysphagia, Denies heartburn, Denies diarrhea, Denies nausea, Denies odynophagia and Denies vomiting Denies hematuria, Denies urinary frequency, Denies dysuria, Denies urinary incontinence and Denies urinary urgency Musc Denies back pain, Denies arthralgias, Denies joint swelling, Denies muscle weakness and Denies neck pain Skin/Breast Denies breast pain, Denies breast mass, Denies change in pigmentation, Denies lesions, Denies rash and Denies unusual bruising Neuro Denies dizziness, Denies headache(s) and Denies paresthesias Psych Denies anxiety and Denies depression Endo Denies fatigue and Denies palpitations Hector/Lymph Denies easy bruising Aller/Immun Denies itchy eyes and Denies wheezing Physical exam (Primary Care) Vital Signs: Last Vital Signs Temp 97.5 F 05/06/25 16:40 Pulse 77 05/06/25 16:40 Resp 18 05/06/25 16:40 BP 140/72 H 05/06/25 16:40 Pulse Ox 97 05/06/25 16:40 Oxygen Delivery Method Room Air 05/06/25 16:40 BMI result Body Mass Index 23.6 Tobacco/Smoking Status: Tobacco use Status Tobacco use date assessed 05/06/25 05/06/25 16:45 Patient Tobacco Use Status Never used Tobacco 05/06/25 16:45 e-Cigarette/Vaping Use Never Used 05/06/25 16:45 PHQ-9: PHQ-9 Score PHQ-9: Total score 0 05/06/25 22:33 Depression Screening Interpretation: Negative Thrive Assessment: Date of Thrive Assessment Date Thrive assessed 05/06/25 05/06/25 16:45 Currently or been in a relationship where the following occur: No concerns reported Const General: no acute distress, alert and awake Orientation/consciousness: patient oriented x3 [facility] Head: Yes normocephalic and Yes atraumatic Ears: external ears normal, TM's normal bilaterally and EAC's normal General nose exam: No nasal discharge present Face and sinus: Yes normal facial exam and Yes sinuses nontender Teeth and gingiva: dentition normal Throat: Yes posterior oropharynx normal and Yes tonsils normal (no TP congestion) Eyes Eyelids: Yes eyelids normal Conjunctivae: conjunctivae normal Pupils: Equal, round and reactive pupils present EOM: EOMs intact bilaterally Neck Neck: Yes no lymphadenopathy and Yes supple Thyroid: Thyroid normal Resp Auscultation: clear to auscultation bilaterally, no rales and no wheezes Cardio Rate: regular rate Rhythm: regular rhythm Heart sounds: no murmurs GI Palpation (GI): Soft to palpation, nontender and No hepatosplenomegaly present Auscultation: normal bowel sounds General: Yes no CVA tenderness Back/Spine/Pelvis Back: no CVA tenderness Thoracic/Lumbar Spine: thoracic and lumbar spine normal to inspection Skin Lesions: no lesions Rashes: no rashes Neuro General: patient oriented x3, moves all extremities, no focal motor deficits and CN's II-XI intact bilaterally Cranial nerves: Yes Equal, round and reactive pupils present Cognition (Neuro): normal cognition Gait exam (Neuro): Normal gait present Extrem General: Yes no clubbing, cyanosis or edema Results Reviewed Results Reviewed: Laboratory Tests 18/ 08:02 WBC 4.3 L Hgb 13.3 Hct 38.6 Plt Count 232 Sodium 141 Potassium 4.3 Creatinine 0.66 Estimated GFR > 60 Fasting Glucose 103 H Calcium 9.4 AST 32 H ALT 41 H Triglycerides 103 Cholesterol 159 LDL Cholesterol, Calc 83 HDL Cholesterol 56 25-OH Vitamin D Total 35.2 TSH 1.22 Free T4 1.16 Ur Specific [place] <= 1.005 Urine Protein Negative Urine Glucose (UA) Negative Urine Blood Negative Urine Nitrite Negative Ur Leukocyte Esterase Negative Coding Level of Care Code Est Pt Prev Care >65y(78855) Diagnoses Annual physical exam Z00.00 Age-related osteoporosis without current pathological fracture M81.0 Osteoporosis type: age-related Presence of current pathological fracture: without current pathological fracture Pure hypercholesterolemia E78.00 Acquired hypothyroidism E03.9 Right sided abdominal pain R10.9 Bladder prolapse, female, acquired N81.10 Respiratory tract infection J98.8 Colon cancer screening Z12.11 Additional Codes PHQ-9 - 74061 - PHQ-9 Billing: Yes ([id number]) Assessment & Plan Assessment & Plan (1) Annual physical exam: Code(s): Z00.00 - Encounter for general adult medical examination without abnormal findings Category: Medical Plan: Results of her labs done a couple of weeks ago reviewed and discussed with patient Patient states that she is up-to-date with all of her cancer screenings except for her colonoscopy She had her annual mammogram done at [place] a couple of months ago on 02/28/2025 - mammogram came out normal States that she had a complete hysterectomy done years ago and she no longer has to keep up with her yearly gynecology exam and pap smear She had her screening colonoscopy last done over 10 years ago and she is now due for repeat colonoscopy - she would like to be referred to [place] for this Her BMDs were done on 08/26/2021 at [place] and she had this repeated at [facility] last year (2023), which showed (+) progression to osteoporosis (2) Osteoporosis: Code(s): M81.0 - Age-related osteoporosis without current pathological fracture Category: Medical Qualifiers: Osteoporosis type: age-related Presence of current pathological fracture: without current pathological fracture Qualified Code(s): M81.0 - Age-related osteoporosis without current pathological fracture Plan: Her most recent BMD done back in November 2023 revealed (+) osteoporosis based on the lowest T-score value of -2.6 in the lumbar spine She recalls taking Alendronate once a week for about 4 to 5 years and was taken off this by her previous doctor over 10 years ago Fall precautions reinforced Her vitamin D level was normal on her recent labs Her urinary N-telopeptide came back normal We considered further treatment with Prolia or Reclast OR refer her to endocrinology for further management Have advised patient that as she has already completed Tx with Alendronate, she cannot take Ibandronate as it is also a bisphosphonate similar to Alendronate We tried starting her on Prolia previously but this was denied by her insurance so we will now go ahead and refer her to endocrinology at [place] (per her request) for further evaluation and management (3) Pure hypercholesterolemia: Code(s): E78.00 - Pure hypercholesterolemia, unspecified Category: Medical Plan: Patient is advised that her cholesterol levels are at or near goal Reinforced low cholesterol diet Continue Rosuvastatin 20 mg QD Will recheck her labs and fasting lipids in 4 months for follow up (4) Acquired hypothyroidism: Code(s): E03.9 - Hypothyroidism, unspecified Category: Medical Plan: Her TFTs were again normal on her recent labs Continue Levothyroxine 88 mcg QD Repeat thyroid US done back in November 2023 revealed no suspicious lesions Will recheck her TFTs in 4 months for follow up (5) Right sided abdominal pain: Code(s): R10.9 - Unspecified abdominal pain Category: Medical Plan: Renal US done back on 08/22/2024 revealed (+) moderate right hydronephrosis with possible extrarenal pelvis. Bilateral ureteral jets are visualized. No obstructing renal calculi appreciated She is currently following up with urology (Dr. Emmanuel) for her renal and bladder issues Patient was also sent for x-rays of the lumbar spine and right hip, which revealed (+) moderate to severe rotatory levoscoliosis and moderate degenerative disc disease Patient states that her right-sided abdominal pain has subsided significantly and now hardly bothers her at all - we will just observe this for now and intervene if her symptoms recur and progress (6) Bladder prolapse, female, acquired: Code(s): N81.10 - Cystocele, unspecified Category: Medical Plan: Follow up with urology (Dr. Emmanuel) as scheduled (7) Respiratory tract infection: Code(s): J98.8 - Other specified respiratory disorders Category: Medical Plan: Have advised patient that her recent respiratory symptoms appear to be mostly due to upper respiratory tract infection Per request, we will send her for chest x-rays for further evaluation although we have advised her that we would not expect to see anything unusual on her x-rays I will also go ahead and start her on empiric treatment with azithromycin QD x 5 days (8) Colon cancer screening: Code(s): Z12.11 - Encounter for screening for malignant neoplasm of colon Category: Medical Plan: She was referred to GI at [place] last year for repeat colonoscopy states that she was not seen Will refer her again, per request, to gastroenterology at [facility] for repeat colonoscopy Plan Follow up in 4 months Orders: Orders XR chest 2V 05/06/25 J98.8 - Other specified respiratory disorders Complete Blood Count Auto Diff 4 Months D64.9 - Anemia, unspecified Comprehensive [place]. Panel Fast 4 Months E78.00 - Pure hypercholesterolemia, unspecified Lipid Panel 4 Months E78.00 - Pure hypercholesterolemia, unspecified Vitamin D 25-OH Total 4 Months E55.9 - Vitamin D deficiency, unspecified UA CC w/rflx Micro + Cult 4 Months R30.0 - Dysuria Thyroid Stimulating Hormone 4 Months E03.9 - Hypothyroidism, unspecified Free T4 (Free Thyroxine) 4 Months E03.9 - Hypothyroidism, unspecified Referrals Gastroenterology Referral Z12.11 - Encounter for screening for malignant neoplasm of colon Endocrinology Referral M81.0 - Age-related osteoporosis without current pathological fracture Medications: New azithromycin take 500 mg today (day 1), then 250 mg for 4 days (days 2-5) PO 6 tabs 0RF
--- OUTSIDE RECORDS SUMMARY | 2025-05-06 16:57 | XMS_ITS | Clinical Summary ---
Author Organization LL 299 [facility] Address [address] [place] [address] Phone Care Team Providers Care Coal Gasification Technician Name Role Phone Antoni Torres MD Primary Care Provider Encounters Date Type Department Care Team Description 02/28/2025 2:35 PM EDT - 02/28/2025 11:59 PM EDT [facility] [address] [phone] Encounter for screening mammogram for breast cancer Discharge Disposition: Home or Self Care from Last 3 Months Surgical History Surgery Date Site/Laterality Comments HYSTERECTOMY Social History Tobacco Use Types Packs/Day Years Used Date Smoking Tobacco: Never Assessed Comments No Sex and Gender Information Value Date Recorded Sex Assigned at Not on file Legal Sex Female 8:48 AM EST Gender Identity Not on file Sexual Orientation Not on file Obstetrics History Para Term AB IAB SAB Ectopic Multiple Livin g Live Births 1 Last Filed Vital Signs Vital Sign Reading Time Taken Comments Blood Pressure - - Pulse - - Temperature - - Respiratory Rate - - Oxygen Saturation - - Inhaled Oxygen Concentration - - Weight 59 kg (130 lb) 02/28/2025 2:54 PM EDT Height 160 cm (5' 3 ) 02/28/2025 2:54 PM EDT Body Mass Index 23.03 02/28/2025 2:54 PM EDT Plan of Treatment Upcoming Encounters Date Type Department Care Team (Late st Contact Info) Description 05/20/2025 10:45 AM EDT Consult General Surgery [facility] [address] [phone] Reinier Payan MD [address] [place] [phone] Health Maintenance Due Date Last Done Comments DTaP,Tdap,and Td Vaccines (1 - Tdap) 1975 Pneumococcal Vaccine: 50+ Years (1 of 1 - PCV) 2006 Colorectal Cancer Screening: Colonoscopy 08/07/2022 Falls Risk Assessment 08/07/2022 Hepatitis C Screening 08/07/2022 Medicare Annual Wellness Visit 08/07/2022 Social Influencers of Health Screening 08/07/2022 Zoster Vaccines (2 of 2) 07/18/2023 05/23/2023 Depression Screening 09/04/2024 COVID-19 Vaccine (3 - 2024- season) 2025 01/16/2021, 12/24/2020 Influenza Vaccine (#1) 2025 06/27/2021, 2019 Breast Cancer Screening 02/28/2027 02/29/20, 02/14/2023, 08/26/2021, Additional history exists Osteoporosis Screening (Bone Density Screening) 08/26/2031 08/26/2021 RSV Immunization Adult Patients (1 - 1-dose 75+ series) 2031 HIB Vaccines Aged Out No longer eligi ble based on patient's age to complete this topic HPV Vaccines Aged Out No longer eligi ble based on patient's age to complete this topic Hepatitis A Vaccines Aged Out No long er eligible based on patient's age to complete this topic Hepatitis B Vaccines Aged Out No long er eligible based on patient's age to complete this topic IPV Vaccines Aged Out No longer eligi ble based on patient's age to complete this topic MMR Vaccines Aged Out No longer eligi ble based on patient's age to complete this topic Meningococcal ACWY Vaccine Aged Out N o longer eligible based on patient's age to complete this topic Meningococcal B Vaccine Aged Out No l onger eligible based on patient's age to complete this topic RSV Immunization Patients Under 20 months Aged Out No longer eligible based on patient's age to complete this topic Varicella Vaccines Aged Out No longer eligible based on patient's age to complete this topic Procedures Procedure Name Priority Date/Time Associated Diagnosis Comments MG MAMMO DIGITAL SCREENING W SUSANNA BILAT Routine 02/28/2025 3:04 PM EDT Encounter for screening mammogram for breast cancer GLADIS DEXA AXIAL SKELETON Routine 08/26/2021 3:06 PM EST Encounter for screening for osteoporosis from Last 3 Months or Most Recently Relevant to Health Maintenance Results * MG Mammo Digital Screening w Susanna bilat (02/28/2025 3:04 PM EDT) Anatomical Region Laterality Modality Breast Bilateral Mammography 03/03/2025 3:52 PM EDT Impressions 03/03/2025 4:00 PM EDT No mammographic evidence of malignancy. No suspicious interval change. A negative mammogram in the presence of a clinically suspicious palpable abnormality does not preclude the possibility of malignancy or alter the indications for biopsy. ASSESSMENT: BI-RADS 1: NEGATIVE RECOMMENDATION(S): 1: Routine screening mammogram BILATERAL in 1 year. [facility] [address], [address] -------- FINAL REPORT -------- Dictated By: Scott Hammond Dictated Date: 03/03/2025 15:52 ET Assigned Physician: Scott Hammond Reviewed and Electronically Signed By: Scott Hammond Signed Date: 03/03/2025 16:00 ET Workstation ID: [id number] Transcribed By: Self Edit Transcribed Date: 03/03/2025 15:52 ET Narrative 03/03/2025 4:00 PM EDT EXAM: SCREENING MAMMOGRAPHY, BILATERAL HISTORY: SCREENING. No additional history. COMPARISON: 01/23/24, 02/14/23, 08/26/21 TECHNIQUE: Synthesized CC and MLO projections of each breast. Tomosynthesis of each breast in the CC and MLO projections. ADDITIONAL IMAGING: None Computer-aided detection was employed with the [employer] AI 3-D. TISSUE DENSITY: There are scattered areas of fibroglandular density. (BI-RADS category B) FINDINGS: RIGHT BREAST: No suspicious mass. No suspicious calcification. No distortion. No additional suspicious right breast findings LEFT BREAST: No suspicious mass. No suspicious calcification. No distortion. No additional suspicious left breast findings Procedure Note Scott Hammond MD - 03/03/2025 EXAM: SCREENING MAMMOGRAPHY, BILATERAL HISTORY: SCREENING. No additional history. COMPARISON: 01/23/24, 02/14/23, 08/26/21 TECHNIQUE: Synthesized CC and MLO projections of each breast.Tomosynthesis of each breast in the CC and MLO projections. ADDITIONAL IMAGING: None Computer-aided detection was employed with the [employer] AI 3-D. TISSUE DENSITY: There are scattered areas of fibroglandular density.(BI-RADS category B) FINDINGS: RIGHT BREAST: No suspicious mass. No suspicious calcification. No distortion. Noadditional suspicious right breast findings LEFT BREAST: No suspicious mass. No suspicious calcification. No distortion. Noadditional suspicious left breast findings IMPRESSION: No mammographic evidence of malignancy. No suspicious interval change. A negative mammogram in the presence of a clinically suspicious palpableabnormality does not preclude the possibility of malignancy or alter theindications for biopsy. ASSESSMENT: BI-RADS 1: NEGATIVE RECOMMENDATION(S): 1: Routine screening mammogram BILATERAL in 1 year. [facility] [address] [place], [address] -------- FINAL REPORT -------- Dictated By: Scott Hammond Dictated Date: 03/03/2025 15:52 ET Assigned Physician: Scott Hammond Reviewed and Electronically Signed By: Scott Hammond Signed Date: 03/03/2025 16:00 ET Workstation ID: [id number] Transcribed By: Self Edit Transcribed Date: 03/03/2025 15:52 ET us Self Referral Sppl IMG BI PROCEDURES Final Resul t * GLADIS DEXA AXIAL SKELETON (08/26/2021 3:06 PM EST) Anatomical Region Laterality Modality Mammography 08/26/2021 2:02 PM EST Narrative 08/26/2021 3:06 PM EST [facility] Diagnostic Imaging Department [address] [place] [address] Patient: MCKINLEY WHITTAKER /Age/Sex: 1955 - 65 - F Unit#: [id number] Location/Status: SPDIMAM/REG CLI Mnemonic/Ordering Site: MAMDEXAAX/SPMAM Ordering Physician: YEISON LUNA MD Gladis Dexa Axial Skeleton - 08/26/211436 HISTORY: The patient is a 65-year-old postmenopausal female with clinical concern for metabolic bone disease. FINDINGS: Dual energy x-ray absorptiometry of the lumbar spine and femurs is performed. The mean bone mineral density at L1-L4 is 0.988 gm/cm2 which is 84% of that of young normals and 101% of that of age matched controls. This yields a T-score of -1.6 and a Z-score of 0.1 which is diagnostic of osteopenia. The mean bone mineral density of the femurs bilaterally is 0.793 gm/cm2 which is 79% of that of young normals and 94% of that of age matched controls. This yields a T-score of -1.7 and a Z-score of -0.4 which is diagnostic of osteopenia. The T-score of the right femoral neck is -1.7 and that of the left femoral neck is -2.0 which is diagnostic of osteopenia. IMPRESSION: 1. Osteopenia. There has been an increase of 2.4% in bone mineral density in the lumbar spine since the prior examination of 12/02/2016. There has been a decrease of 6.9% in bone mineral density in the right femur and a decrease of 7.7% in bone mineral density in the left femur. 2. FRAX analysis yields a 10-year probability of major osteoporotic fracture of 14.7% and a 10-year probability of hip fracture of 2.2%. Code 93030 Dictating Physician: RICKI LLANES MD Electronically Signed by: RICKI LLANES MD Dic Date/Time: 08/26/21 1503 Sign date/Time: 08/26/21 1506 Procedure Note Ricki Llanes MD - 08/24/2022 [facility] Diagnostic Imaging Department [address] [place], [place] [id number] Patient: MCKINLEY WHITTAKER /Age/Sex: 1955 - 65 - F Unit#: [id number] Location/Status: [facility] Ordering Physician: YEISON LUNA MD Gladis Dexa Axial Skeleton - 08/26/21 - 0739 HISTORY: The patient is a 65-year-old postmenopausal female withclinical concern for metabolic bone disease. FINDINGS: Dual energy x-ray absorptiometry of the lumbar spine and femursis performed. The mean bone mineral density at L1-L4 is 0.988 gm/cm2 which is84% of that of young normals and 101% of that of age matched controls. Thisyields a T-score of -1.6 and a Z-score of 0.1 which is diagnostic of osteopenia. The mean bone mineral density of the femurs bilaterally is 0.793 gm/wj2pfexf is 79% of that of young normals and 94% of that of age matched controls.This yields a T-score of -1.7 and a Z-score of -0.4 which is diagnostic of osteopenia. The T-score of the right femoral neck is -1.7 and that of theleft femoral neck is -2.0 which is diagnostic of osteopenia. IMPRESSION: 1. Osteopenia. There has been an increase of 2.4% in bone mineral densityin the lumbar spine since the prior examination of 12/02/2016. There has chalino decrease of 6.9% in bone mineral density in the right femur and a decreaseof 7.7% in bone mineral density in the left femur. 2. FRAX analysis yields a 10-year probability of major osteoporoticfracture of 14.7% and a 10-year probability of hip fracture of 2.2%. Code 63393 Dictating Physician: RICKI LLANES MD Electronically Signed by: RICKI LLANES MD Dic Date/Time: 08/26/21 1503 Sign date/Time: 08/26/21 1506 Yeison Luna MD IMG BI PROCEDURES Final Resu lt from Last 3 Months or Most Recently Relevant to Health Maintenance Insurance [employer] MEDICARE ADVANTAGE Care Teams Coal Gasification Technician Relationship Specialty Start Date End Date Antoni Torres MD [address] [place] [address] [address] [place] PCP - General Internal Medicine 02/11/25
--- OUTSIDE RECORDS SUMMARY | 2025-05-06 16:57 | XMS_ITS | Encounter Summary ---
Author Organization [facility] Address [address] [place] [address] Care Team Providers Care Brokerage Clerk Name Role Phone Antoni Torres MD Primary Care Provider + [phone] Encounter Details Date Type Department Care Team (Late Contact Info) Description 12/04/2024 Lab Requisition [facility] Lab [address] [facility] [place] [address] Scott Emmanuel MD 100 [facility] [address] [place] [phone] Urinary tract infection, site not specified Social [...] 10:45 AM EDT Consult General Surgery - [place] 175 [facility] [address] [place] [address] Reinier Payan MD [address] [place] [phone] documented as of this encounter Procedures Procedure Name Priority Date/Time Associated Diagnosis Comments CULTURE URINE Routine 12/04/2024 12:00 AM EDT Urinary tract infection, site not specified documented in this encounter Results * (ABNORMAL) Culture urine (12/04/2024 12:00 AM EDT) Culture, Urine 10,000-49,000 CFU/mL Streptococcus beta-hemolytic Group B(A) 12/05/2024 2:28 PM EDT [facility] Comment: Susceptibility testing is not routinely performed for Beta Streptococcus isolates since these organisms are predictably sensitive to Penicillin. If the Patient is not responding, is allergic to Penicillin, or further therapeutic information is requir ed, please consult an Infectious Disease Specialist. Urine Urine specimen obtained by clean catch procedure / Unknown 12/04/2024 12/04/2024 6:04 PM EDT Narrative [facility] - 12/05/2024 2:28 PM EDT Additional colony types present in insignificant amounts. Scott Emmanuel MD LAB MICROBIOLOGY - GENERA L ORDERABLES Final Result [facility] [address] [place] [address], documented in this encounter Visit Diagnoses Diagnosis Urinary tract infection, site not specified documented in this encounter Care Teams Brokerage Clerk Relationship Specialty Start Date End Date Antoni Torres MD [address] [place] [address] Dr Kulk[address]i [address] [place] PCP - General Internal Medicine 02/11/25 documented as of this encounter
== END 2025-05-06 17:40 | disposition home or self-care (01) ==
LOC: HO.HMCH 16:37
PROVIDERS: PCP Internal Medicine; Visit Provider Internal Medicine
DX: Z00.00 Encounter for general adult medical examination without abnormal findings (principal); M81.0 Age-related osteoporosis without current pathological fracture; E78.00 Pure hypercholesterolemia, unspecified; E03.9 Hypothyroidism, unspecified; R10.9 Unspecified abdominal pain; N81.10 Cystocele, unspecified; J98.8 Other specified respiratory disorders; Z12.11 Encounter for screening for malignant neoplasm of colon

== ENCOUNTER → 2025-05-06 16:36 | Outpatient (BNVA) | payer MEDICARE, SELFPAY | PROVIDERS: PCP Internal Medicine; Visit Provider Internal Medicine | DX: Z00.00 Encounter for general adult medical examination without abnormal findings (principal); M81.0 Age-related osteoporosis without current pathological fracture; E78.00 Pure hypercholesterolemia, unspecified; R09.89 Other specified symptoms and signs involving the circulatory and respiratory systems; E03.9 Hypothyroidism, unspecified; R10.9 Unspecified abdominal pain; N81.10 Cystocele, unspecified; J98.8 Other specified respiratory disorders; D64.9 Anemia, unspecified; E55.9 Vitamin D deficiency, unspecified; R30.0 Dysuria | CPT/HCPCS: 96127; 99397 ==

== ENCOUNTER 2025-05-07 08:34 | Outpatient (REF) | payer MEDICARE, SELFPAY ==
--- NOTE | ~2025-05-07 | XR_ITS ---
EXAMINATION: XR CHEST CLINICAL INFORMATION: J98.8 - Other specified respiratory disorders COMPARISON: November 17, 2023. TECHNIQUE: 2 views of the chest were obtained. FINDINGS: Hyperinflated lungs. Pulmonary reticular pattern. No consolidation, pleural effusion or pneumothorax. Cardiomediastinal silhouette size is small, unchanged. Multilevel thoracolumbar spondylosis. Levoconvex rotoscoliosis at the thoracolumbar spine, severe. Osteopenia versus osteoporosis. 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 Levoconvex scoliosis, centered, thoracolumbar spine. Electronically signed by: Len Shirley MD 05/07/2025 09:25 AM EDT
--- OUTSIDE RECORDS SUMMARY | 2025-05-07 09:04 | XMS_ITS | Clinical Summary ---
Author Organization LL 299 [facility] Address [address] [place] [address] Phone Care Team Providers Care Traveling Clerk Name Role Phone Antoni Torres MD Primary Care Provider Encounters Date Type Department Care Team Description 02/28/2025 2:35 PM EDT - 02/28/2025 11:59 PM EDT [facility] [address] [phone] Encounter for screening mammogram for breast cancer [...] 05/20/2025 10:45 AM EDT Consult General Surgery [facility] [address] [phone] Reinier Payan MD [address] [place] [phone] Health Maintenance Due Date Last Done Comments [...] year. [facility]ammography location: [facility] [address], [address] -------- FINAL REPORT -------- Dictated By: Scott Hammond Dictated Date: 03/03/2025 15:52 ET Assigned Physician: Scott Hammond Reviewed and Electronically Signed By: Scott Hammond Signed Date: 03/03/2025 16:00 ET Workstation ID: [id number] Transcribed By: Self Edit Transcribed Date: 03/03/2025 15:52 ET Narrative 03/03/2025 4:00 PM EDT EXAM: SCREENING MAMMOGRAPHY, BILATERAL HISTORY: SCREENING. No additional history. COMPARISON: 01/23/24, 02/14/23, 08/26/21 TECHNIQUE: Synthesized CC and MLO projections of each breast. Tomosynthesis of each breast in the CC and MLO projections. ADDITIONAL IMAGING: None Computer-aided detection was employed with the [employer] AI 3-D. TISSUE DENSITY: There are scattered [...] year. [facility]ammography location: [facility] [address] [place], [address] -------- FINAL REPORT -------- Dictated By: Scott Hammond Dictated Date: 03/03/2025 15:52 ET Assigned Physician: Scott Hammond Reviewed and Electronically Signed By: Scott Hammond Signed Date: 03/03/2025 16:00 ET Workstation ID: [id number] Transcribed By: Self Edit Transcribed Date: 03/03/2025 15:52 ET us Self Referral Sppl IMG BI PROCEDURES Final Resul t * GLADIS DEXA AXIAL SKELETON (08/26/2021 3:06 PM EST) Anatomical Region Laterality Modality Mammography 08/26/2021 2:02 PM EST Narrative 08/26/2021 3:[address] [facility] Diagnostic Imaging Department [address] [place] [address] Patient: MCKINLEY WHITTAKER /Age/Sex: 1955 - 65 - F Unit#: [id number] Location/Status: SPDIMAM/REG CLI Mnemonic/Ordering Site: MAMDEXAAX/SPMAM Ordering [...] probability of hip fracture of 2.2%. Code 56648 Dictating Physician: RICKI LLANES MD Electronically Signed by: RICKI LLANES MD Dic Date/Time: 08/26/21 1503 Sign date/Time: 08/26/21 1506 Procedure Note Ricki Llanes MD - 08/24/2022 [facility] Diagnostic Imaging Department [address] [place], [place] [phone] Patient: MCKINLEY WHITTAKER /Age/Sex: 1955 - 65 - F Unit#: [id number] Location/Status: [facility]em[facility] Ordering Physician: YEISON LUNA MD Gladis Dexa Axial Skeleton - 08/26/21 - 7779 HISTORY: The patient is a 65-year-old postmenopausal [...] density of the femurs bilaterally is 0.793 gm/ay6izwan is 79% of that of young normals [...] probability of hip fracture of 2.2%. Code 20158 Dictating Physician: RICKI LLANES MD Electronically Signed by: RICKI LLANES MD Dic Date/Time: 08/26/21 1503 Sign date/Time: 08/26/21 1506 Yeison Luna MD IMG BI PROCEDURES Final Resu lt from Last 3 Months or Most Recently Relevant to Health Maintenance Insurance [employer] MED[employer]ARE ADVANTAGE Care Teams Traveling Clerk Relationship Specialty Start Date End Date Antoni Torres MD [address] [place] [address] [address] [place] PCP - General Internal Medicine 02/11/25
--- OUTSIDE RECORDS SUMMARY | 2025-05-07 09:04 | XMS_ITS | Encounter Summary ---
Author Organization [facility] Address [address] [place] [address] Care Team Providers Care Destination Coordinator Name Role Phone Antoni Torres MD Primary Care Provider + [phone] Encounter Details Date Type Department Care Team (Late Contact Info) Description 12/04/2024 Lab Requisition [facility] Lab [address] [facility] [place] [address] Scott Emmanuel MD 100 [facility] 120 [place] [phone] Urinary tract infection, site not specified Social [...] 10:45 AM EDT Consult General Surgery - [place] 175 [facility] [address] [place] [address] Reinier Payan MD [address] [place] [phone] documented as of this encounter Procedures Procedure Name Priority Date/Time Associated Diagnosis Comments CULTURE URINE Routine 12/04/2024 12:00 AM EDT Urinary tract infection, site not specified documented in this encounter Results * (ABNORMAL) Culture urine (12/04/2024 12:00 AM EDT) Culture, Urine 10,000-49,000 CFU/mL Streptococcus beta-hemolytic Group B(A) 12/05/2024 2:28 PM EDT [facility] Comment: Susceptibility testing is not routinely performed for Beta Streptococcus isolates since these organisms are predictably sensitive to Penicillin. If the Patient is not responding, is allergic to Penicillin, or further therapeutic information is requir ed, please consult an Infectious Disease Specialist. Urine Urine specimen obtained by clean catch procedure / Unknown 12/04/2024 12/04/2024 6:04 PM EDT Narrative [facility] - 12/05/2024 2:28 PM EDT Additional colony types present in insignificant amounts. Scott Emmanuel MD LAB MICROBIOLOGY - GENERA L ORDERABLES Final Result [facility] [address] [place] [address], documented in this encounter Visit Diagnoses Diagnosis Urinary tract infection, site not specified documented in this encounter Care Teams Destination Coordinator Relationship Specialty Start Date End Date Antoni Torres MD [address] [place] [address] Dr Kulkarni [address] [place] PCP - General Internal Medicine 02/11/25 documented as of this encounter
== END 2025-05-07 08:35 | disposition home or self-care (01) ==
LOC: HO.HMGCX 08:34
PROVIDERS: PCP Internal Medicine; Visit Provider Internal Medicine
DX: J98.8 Other specified respiratory disorders (principal)
CPT/HCPCS: 71046

== ENCOUNTER → 2025-05-07 08:37 | Outpatient (BNV) | payer MEDICARE, SELFPAY | PROVIDERS: PCP Internal Medicine; Visit Provider Radiology Diagnostic Radiology | DX: J98.8 Other specified respiratory disorders (principal) | CPT/HCPCS: 71046 ==